=== PATIENT | female | born 1950 | race Caucasian/White ===

== ENCOUNTER 2025-01-23 08:34 | Emergency (ER) | payer MEDICARE, OTHER, SELFPAY ==
--- OUTSIDE RECORDS SUMMARY | 2023-09-11 03:05 | XMS_ITS | Continuity of Care Document ---
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 Location Location Details Encounter Type Encounter Number Reason For Visit Attending Provider ADM Date DC Date Status Disposition Source [facility] Outpatient Encounter [id number] 09/10 [facility]
--- OUTSIDE RECORDS SUMMARY | 2025-01-22 23:59 | XMS_ITS | Continuity of Care Document ---
Author Organization [facility] Address [address] [place] [id number] Care Team Providers Care Manager Animation Name Role Phone Margie GOETZ, Susan Goff Primary Care Physician [phone] Encounter [facility] Date(s): 12/23/24 - 01/22/25 [facility]/[address] [address]- Encounter Type: Triage Allergies, Adverse Reactions, Alerts Substance Criticality Severity Reaction Reaction Severity Status penicillin Active lidocaine topical 1 Active meloxicam Pruritic Rash Active lisinopril angioedema Active Tegretol chemical induce hepatitis Active Bactrim Active 1rash Immunizations Given and Recorded Vaccine Date Status Refusal Reason Influenza Virus Vaccine (oldterm) 1 03/09/24 Recor ded Influenza Virus Vaccine (oldterm) 02/13/20 Recorde d Influenza Virus Vaccine (oldterm) 02/10/19 Recorde d SARS-CoV-2 mRNA ([id number]) vax 2 03/09/24 Recorded SARS-CoV-2 mRNA (nyixxmf-kaiy-zygyg) vax 02/24/23 Recorded SARS-CoV-2 mRNA (ibjazgs-uzao-kcjht) vax 09/26/21 Recorded influenza virus vaccine, inactivated 03/09/24 Eugenio rded influenza virus vaccine, inactivated 02/24/23 Give n influenza virus vaccine, inactivated 02/21/22 Eugenio rded influenza virus vaccine, inactivated 04/08/21 Give n influenza virus vaccine, inactivated 03/25/18 Give n influenza virus vaccine, inactivated 02/17/17 Give n influenza virus vaccine, inactivated 03/25/16 Give n influenza virus vaccine, inactivated 07/13/15 Eugenio rded influenza virus vaccine, inactivated 3 05/12/14 Gi chintan influenza virus vaccine, inactivated 4 03/11/12 Gi chintan SARS-CoV-2(COVID-19)mRNA-LNP vac([id number]) 03/09/24 Recorded pneumococcal 20-valent conjugate vaccine 01/19/24 Given RSV vaccine preF3, recombinant 04/22/23 Recorded [id number] bivalent booster vax 02/21/22 Recorded SARS-CoV-2 (COVID-19) mRNA BNT-162b2 vac 03/01/21 Recorded SARS-CoV-2 (COVID-19) mRNA BNT-162b2 vac 07/20/20 Recorded SARS-CoV-2 (COVID-19) mRNA BNT-162b2 vac 06/29/20 Recorded zoster vaccine, inactivated 05/16/19 Given zoster vaccine, inactivated 02/07/19 Given tetanus/diphtheria/pertussis, acel(Tdap) 01/29/19 Recorded tetanus/diphtheria/pertussis, acel(Tdap) 5 09/19/11 Given pneumococcal 23-valent vaccine 05/08/17 Given pneumococcal 13-valent vaccine 6 08/28/15 Given Zoster Vaccine Live 7 04/24/12 Given Zoster Vaccine Live 03/11/12 Recorded hepatitis B adult vaccine 02/15/03 Given [facility] [place] 4Admin Note: VIS11/24/11 GIVEN 5Admin Note: BOOSYRIX [facility] STOCK VIS 04/11/08 GIVEN 6Result Comment: [08/28/2015] ORDERED BY DR. HANSON 7Result Comment: [07/05/2014] Received at [facility] Medications amLODIPine 5 mg oral tablet 1 tablet, By Mouth, Daily, # 90 tablet, 3 Refills, Maintenance, 01/19/24 1:14:00 PM EDT, [id number], 149, cm, 01/19/24 9:17:00 EDT, Height Start Date: 01/19/24 Status: Ordered Medication Dispense Status: Completed Quantity: 90.0 Unit: tablet Total Allowed Fills: 4 Fills Dispensed: 0 atenolol 100 mg oral tablet 1 tablet, By Mouth, Daily, # 90 tablet, 3 Refills, Maintenance, 04/19/24 8:47:00 AM EST, [facility]/pharmacy #[id number], 149, cm, 04/19/24 8:15:00 EST, Height Start Date: 04/19/24 Status: Ordered Medication Dispense Status: Completed Quantity: 90.0 Unit: tablet Total Allowed Fills: 4 Fills Dispensed: 0 bedside commode bedside commode, See Instructions, # 1 each, Refills 0, Tot. Refills 0, Maintenance, incontinence fall risk MARCEL 99, 01/02/25 6:26:00 PM EDT, Supply Start Date: 01/02/25 Status: Ordered Medication Dispense Status: Completed Quantity: 1.0 Unit: each Total Allowed Fills: 1 Fills Dispensed: 0 bladder control pads bladder control pads, See Instructions, # 120 each, Refills 5, Tot. Refills 5, Maintenance, Dx: urinary incontinence MARCEL 99, 01/02/25 6:26:00 PM EDT, Supply Start Date: 01/02/25 Status: Ordered Medication Dispense Status: Completed Quantity: 120.0 Unit: each Total Allowed Fills: 6 Fills Dispensed: 0 cefpodoxime 200 mg oral tablet 1 tablet = 200 mg, By Mouth, Every 12 hours, for 10 days, # 20 tablet, 0 Refills, Physician Stop 01/26/25 4:46:00 PM EDT, 01/16/25 4:46:00 PM EDT, [id number], 149, cm, 01/16/25 16:12:00 EDT, Height, 90.8, kg, 01/16/25 16:12:00 EDT, Dry Weight Start Date: 01/16/25 Stop Date: 01/26/25 Status: Ordered Medication Dispense Status: Completed Quantity: 20.0 Unit: tablet Total Allowed Fills: 1 Fills Dispensed: 0 clonazePAM 0.5 mg oral tablet 1 tablet = 0.5 mg, By Mouth, 2 times a day, PRN as needed for insomnia or back spasm, # 60 tablet, 5 Refills, Maintenance, 01/16/25 4:33:00 PM EDT, [id number], covering for PCP, 149, cm, 01/16/25 16:12:00 EDT, Height, 90.8, kg, 01/16/25 16:12:00 EDT, Dry Weight Start Date: 01/16/25 Stop Date: 07/15/25 Status: Ordered Medication Dispense Status: Completed Quantity: 60.0 Unit: tablet Total Allowed Fills: 6 Fills Dispensed: 0 diclofenac 1% topical gel 2.25 inches, Topically, 4 times a day, use dosing card to measure a dose, # 100 Gm, 1 Refills, Maintenance, 12/23/24 3:49:00 PM EDT, Gel, [facility]/pharmacy #[id number], Partial fill upon patient request if the prescription is for a schedule II opioid drug., 149, cm, 12/23/24 14:48:00 EDT, Height, 93.4, kg, 12/23/24 14:48:00 EDT, Dry Weight Start Date: 12/23/24 Stop Date: 02/21/25 Status: Ordered Medication Dispense Status: Completed Quantity: 100.0 Unit: g Total Allowed Fills: 2 Fills Dispensed: 0 Indications: Pain in unspecified shoulder; disposable bed pads disposable bed pads, See Instructions, # 120 each, Refills 5, Tot. Refills 5, Maintenance, Dx: incontinence MARCEL 99, 01/02/25 6:19:00 PM EDT, Supply Start Date: 01/02/25 Status: Ordered Medication Dispense Status: Completed Quantity: 120.0 Unit: each Total Allowed Fills: 6 Fills Dispensed: 0 Estrace Vaginal Cream 0.1 mg/g See Instructions, 1 Gm Vaginally 3x a week at bedtime (MWF), # 42.5 Gm, 3 Refills, Maintenance, 01/16/25 4:46:00 PM EDT, [facility]/pharmacy #[id number], Partial fill upon patient request if the prescription is for a schedule II opioid drug., 149, cm, 01/16/25 16:12:00 EDT, Height, 90.8, kg, 01/16/25 16:12:00 EDT, Dry Weight Start Date: 01/16/25 Status: Ordered Medication Dispense Status: Completed Quantity: 42.5 Unit: g Total Allowed Fills: 4 Fills Dispensed: 0 magnesium glycinate 100 mg oral capsule 2 capsule = 200 mg, By Mouth, Daily, 0 Refills, Maintenance, 09/21/24 5:22:00 PM EDT, Partial fill upon patient request if the prescription is for a schedule II opioid drug. Start Date: 09/21/24 Status: Ordered Medication Dispense Status: Completed Total Allowed Fills: 1 Fills Dispensed: 0 [place]-3 Polyunsaturated Fatty Acids = 1,000 mg, By Mouth, 2 times a day, 0 Refills, Maintenance, 07/02/18 3:42:02 PM EST Start Date: 07/02/18 Status: Ordered Medication Dispense Status: Completed Total Allowed Fills: 1 Fills Dispensed: 0 pull ups XL pull ups XL, See Instructions, # 240 each, Refills 5, Tot. Refills 5, Maintenance, Dx: incontinenceLON 99, 01/02/25 6:19:00 PM EDT, Supply Start Date: 01/02/25 Status: Ordered Medication Dispense Status: Completed Quantity: 240.0 Unit: each Total Allowed Fills: 6 Fills Dispensed: 0 traMADol 50 mg oral tablet 1 tablet = 50 mg, By Mouth, Every 12 hours, PRN for low back pain/hip/wrist pain, # 60 each, 1 Refills, Maintenance, 01/16/25 4:47:00 PM EDT, Tablet, [facility]/pharmacy #[id number], Partial fill upon patient request if the prescription is for a schedule II opioid drug., 149, cm, 01/16/25 16:12:00 EDT, Height, 90.8, kg, 01/16/25 16:12:00 EDT, Dry Weight Start Date: 01/16/25 Status: Ordered Medication Dispense Status: Completed Quantity: 60.0 Unit: each Total Allowed Fills: 2 Fills Dispensed: 0 Vitamin D3 50,000 intl units oral capsule See Instructions, TAKE 1 CAPSULE BY MOUTH EVERY WEEK WITH FOOD. AFTER COMPLETING THE WEEK COURSE, STAR VIT D3 1000 UNITS DAILY, # 12 capsule, 3 Refills, Maintenance, 01/17/25 4:40:00 PM EDT, [facility] [id number], 149, cm, 01/16/25 16:12:00 EDT, Height, 90.8, kg, 01/16/25 16:12:00 EDT, Dry Weight Start Date: 01/17/25 Status: Ordered Medication Dispense Status: Completed Quantity: 12.0 Unit: capsule Total Allowed Fills: 1 Fills Dispensed: 0 washable bed pads washable bed pads, See Instructions, # 5 each, Refills 0, Tot. Refills 0, Maintenance, Dx: incontinence MARCEL 99, 01/02/25 6:34:00 PM EDT, Supply Start Date: 01/02/25 Status: Ordered Medication Dispense Status: Completed Quantity: 5.0 Unit: each Total Allowed Fills: 1 Fills Dispensed: 0 wheeled walker with seat wheeled walker with seat, See Instructions, # 1 each, Refills 0, Tot. Refills 0, Maintenance, Dx: fall risk, 01/02/25 6:33:00 PM EDT, Supply Start Date: 01/02/25 Status: Ordered Medication Dispense Status: Completed Quantity: 1.0 Unit: each Total Allowed Fills: 1 Fills Dispensed: 0 Problem List Condition Confirmation Course Effective Dates Status H ealth Status Informant Angioedema 1 Confirmed Active Anxiety disorder Confirmed Active Cholelithiases Confirmed 01/11/25 Active Cervical spondylosis-diffuse, no cord impingement Confirmed 06/25/12 Active DDD (degenerative disc disease), lumbar 2 Confirmed 04/19/24 Active Abnormal resting ECG findings 3 Confirmed 10/29/16 Active Radius distal fracture--left Confirmed 01/28/23 Active Reflux esophagitis Confirmed Active S/P colonoscopic polypectomy (sessile <10 mm) Confirmed 06/17/24 Active Status post right knee replacement Confirmed 03/11/17 Active Hyperlipidemia Confirmed Active Hypertension Confirmed Active Osteitis pubis (see MRI findings) Confirmed 10/27/24 Active Insomnia Confirmed Active Macrocytosis - no anemia Confirmed 12/12/00 Active Obesity (BMI >40) Confirmed 11/22/08 Active Left Knee Replacement Confirmed 07/27/13 Active [facility] arthritis, thumb, degenerative-left Confirmed 08/30/21 Active Osteopenia-hip Confirmed 12/01/13 Active Severe obesity Confirmed Active Vitamin D deficiency Confirmed Active 1probably from [facility] 2Mild multifocal degenerative disc endplate spurring and disc space narrowing. Grade 1 degenerative anterolisthesis at L4-L5. 3Stess test and ECHO ([facility] 10/2016) both normal. Social History Social History Type Response Smoking Status Never (less than 100 in lifetime) entered on: 02/24/23 Sex Sex Representation Female (finding) Patient Care team information Care Team Personnel Name: Susan Hanson MD Position: [facility] Physician - Primary Care Member Role: PCP Address: [address] [place] [address] Telecom: Care Team Related Persons Name: ISAEL PELAEZ Insurance Providers Guarantor name: ZAKIA BURNS Tripping Plan Information #: 1 Payer: MEDICARE B Payer Identifier: NA Member Number: [id number] Group Number: NA Subscriber Identifier: NA Relationship to Subscriber: self Coverage Type: NA Coverage Verification Date: NA Telecom: NA Address: NA Health Plan Information #: 2 Payer: [facility] Payer Identifier: NA Member Number: [id number] Group Number: NA Subscriber Identifier: NA Relationship to Subscriber: self Coverage Type: [employer] [facility] () Coverage Verification Date: NA Telecom: NA Address:
--- NOTE | ~2025-01-23 | XR_ITS ---
CLINICAL HISTORY: pain after fall 3 view left shoulder Comparison: None provided Findings: Mildly displaced acute appearing Fracture of the proximal humerus. No significant loss of joint space or osteophytes. No erosions. No radiopaque foreign body. Spurring of the lateral acromion. Soft tissue swelling. IMPRESSION: Mildly displaced acute appearing Fracture of the proximal humerus. This document has been electronically signed by: Chema Meraz DO on 01/23/2025 09:56:58
--- NOTE | ~2025-01-23 | CT_ITS ---
CLINICAL HISTORY: fall with head strike CT head without contrast Comparison: CT/SR - CT CERVICAL SPINE WO IV CON - 01/23/25 08:55 EDT Findings: No intra-axial mass, midline shift, hydrocephalus, or acute hemorrhage. No significant atrophy-like change or white matter disease. The visualized paranasal sinuses and mastoid air cells are normal. Postoperative changes of both globes. Partially included scalp and calvarium. Questionable soft tissue swelling of the superior scalp. No skull fracture. IMPRESSION: 1. No acute intracranial findings. This document has been electronically signed by: Chema Meraz DO on 01/23/2025 10:04:54
--- NOTE | ~2025-01-23 | XR_ITS ---
CLINICAL HISTORY: fall, deformity 4 view left wrist Comparison: CR - XR HAND LT MIN 3V - 01/23/25 09:08 EDT Findings: Bones intact. No dislocations. Multifocal degenerative changes. No radiopaque foreign body. Chronic appearing deformity of the distal radius and ulna. Diffusely decreased bone mineral density. IMPRESSION: Chronic appearing deformity of the distal radius and ulna. This document has been electronically signed by: Chema Meraz DO on 01/23/2025 09:55:19
--- NOTE | ~2025-01-23 | CT_ITS ---
CLINICAL HISTORY: fall with head strike CT cervical spine without contrast Comparison: CT/SR - CT HEAD/BRAIN WO IV CON - 01/23/25 08:55 EDT Findings: Normal vertebral body alignment. Multilevel degenerative changes. No acute fractures or dislocations. Visualized intracranial contents are unremarkable. No cervical fluid collections or masses. No consolidation or effusion at the lung apices. IMPRESSION: No acute findings. This document has been electronically signed by: Chema Meraz DO on 01/23/2025 10:05:55
--- NOTE | ~2025-01-23 | XR_ITS ---
CLINICAL HISTORY: +fx on shoulder xray --- Additional Notes or Special Instructions: please dont rotate humerus to get views 3 view left humerus Comparison: CR - XR SHOULDER LT MIN 2V - 01/23/25 09:12 EDT Findings: Impacted acute displaced fracture of the proximal humerus. There is 1.8 cm of impaction of the fracture. There is soft tissue swelling. IMPRESSION: Impacted acute displaced fracture of the proximal humerus. This document has been electronically signed by: Chema Meraz DO on 01/23/2025 13:33:26
--- NOTE | ~2025-01-23 | XR_ITS ---
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 Multifocal degenerative changes. no definite acute fracture. No radiopaque foreign body. Chronic appearing deformity at the distal radius and distal ulna. Diffusely decreased bone mineral density. IMPRESSION: 1. 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 2. Chronic appearing deformity at the distal radius and distal ulna. This document has been electronically signed by: Chema Meraz DO on 01/23/2025 09:53:13
--- NOTE | 2025-01-23 08:38 | ED_ITS ---
HPI - General Adult General Chief complaint: Fall Stated complaint: MECHANICAL FALL LETHARGIC Time Seen by Provider: 01/24/25 08:07 Source: patient, EMS, RN notes reviewed and old records reviewed Mode of arrival: EMS Limitations: no limitations History of Present Illness ED Provider: Ashley HPI narrative: Patient is a 74-year-old female with history of HTN, HLD, cirrhosis-currently being worked up by GI, obesity, anxiety, recent multiple falls presenting to the emergency department via EMS with complaint of left wrist pain after a slip and fall from bed prior to arrival. EMS reports patient somewhat drowsy/lethargic. Patient's reports that patient has had a steady decline since a significant left wrist and hand fracture a few years ago, has had frequent UTIs. also reports ongoing right shoulder pain for which patient is prescribed tramadol. Currently on cefpodoxime for a UTI now. reports difficulty caring for patient at home and patient agrees with this. did not witness fall but heard patient calling for help. Patient took clonazepam and tramadol at bedtime. Patient denies loss of consciousness, she is not anticoagulated. She denies headache, neck or back pain. Denies chest pain, dyspnea, abdominal pain. She refused a C-collar for EMS. She denies any hip or lower extremity pain. MD complaint: left arm pain Onset (ago): hour(s) Related Data Home Medications ?Medication ?Instructions ?Recorded ?Confirmed amlodipine 5 mg tablet 5 mg PO DAILY 01/24/2501/24 atenolol 100 mg tablet 100 mg PO DAILY 01/24/2507/19 cefpodoxime 200 mg tablet 200 mg PO Q12H 01/24/2507/19 clonazepam 0.5 mg tablet 0.5 mg PO BID PRN muscle spa sm 01/24/25 01/24/25 cyanocobalamin (vitamin B-12) 1,000 mcg PO Q48H 01/24/25 1,000 mcg tablet diclofenac sodium 50 mg 50 mg PO DAILY PRN low back pain 01/24/25 01/24/25 tablet,delayed release estradiol 0.01% (0.1 mg/gram) 1 g vaginal 3XW 01/24/25 01/24/25 vaginal cream magnesium 200 mg tablet 200 mg PO DAILY 01/24/2507/19 omega 3-mom-wbx-fish oil 300 1 cap PO DAILY 01/24/25 0 01/24/25 mg-1,000 mg capsule (Fish Oil) tramadol 50 mg tablet 50 mg PO Q12H PRN Pain 01/2401/24/25 Previous Rx's ?Medication ?Instructions ?Recorded morphine 15 mg immediate release 15 mg PO Q8H severe p ain #7 tabs 01/24/25 tablet Allergies Allergy/AdvReac Type Severity Reaction Status Date / Time carbamazepine (Tegretol) Allergy Unknown Unknown Verified 01/23/25 08:56 lisinopril Allergy Unknown Unknown Verified 01/23/25 08:56 penicillin V Allergy Unknown Unknown Verified 01/23/25 08:56 Sulfa (Sulfonamide Allergy Unknown Unknown Verified 01/23/25 08:56 Antibiotics) [place] Sponge Allergy Unknown Unknown Uncoded 01/23/25 08:56 Review of Systems 2 Review of Systems: As per HPI Yes all other systems are reviewed and are negative Constitutional: Constitutional: Reports as per HPI PMFSH Social History Social History Advance Directives: Yes Advance Directives Information Provided: No Advance Directives on File: No Physical Exam ED Vital Signs: Vital Signs - 24 hr 01/23/25 21:03 01/23/25 23:00 01/24/25 02:01 Temperature 98.1 F 97.1 F Pulse Rate 79 80 Respiratory Rate 18 18 20 Blood Pressure 144/53 H 139/60 Pulse Oximetry 94 94 Oxygen Delivery Method Room Air Room Air 01/24/25 05:05 01/24/25 08:37 01/24/25 14:00 Temperature 98.2 F 98.9 F 99.9 F Pulse Rate 77 81 84 Respiratory Rate 18 16 16 Blood Pressure 140/30 H 132/57 L 123/63 Pulse Oximetry 98 97 94 Oxygen Delivery Method Room Air Room Air 01/24/25 16:26 Temperature 98.9 F Pulse Rate 84 Respiratory Rate 16 Blood Pressure 123/63 Pulse Oximetry 94 Oxygen Delivery Method Room Air BMI result Body Mass Index 38.3 Vital signs have been reviewed and appear to be correct. Blood pressure normal. Heart rate normal. Respiratory rate normal. Temperature normal. Oxygen saturation normal. Const General: cooperative, no acute distress and other (drowsy, responds quickly to voice) Orientation/consciousness: oriented to person, oriented to place, oriented to time and patient oriented x3 Limitations: no limitations [facility] Head: Yes normocephalic and Yes atraumatic Ears: external ears normal General nose exam: Normal external nose present Face and sinus: Yes face symmetric Mouth: oropharynx normal and moist mucous membranes Throat: Yes uvula midline Eyes Pupils: Equal, round and reactive pupils present Neck Neck: Yes normal visual inspection and Yes supple Resp Effort & Inspection: normal respiratory effort and able to speak in complete sentences Auscultation: clear to auscultation bilaterally Cardio Rate: regular rate Rhythm: regular rhythm Heart sounds: S1 normal heart sound present and S2 normal heart sound present GI Palpation (GI): Soft to palpation and nontender Auscultation: normoactive bowel sounds General: Yes no CVA tenderness Back/Spine/Pelvis Back: no CVA tenderness Cervical Spine: normal cervical lordosis, cervical ROM normal, No pain with cervical ROM, No Cervical spine tenderness and No step off deformity Thoracic/Lumbar Spine: thoracic and lumbar spine normal to inspection, thoraco- lumbar ROM normal, No pain with thoraco-lumbar ROM, No thoracic spinal tenderness and No lumbar spinal tenderness Pelvis: no pain with anterior-posterior compression and no pain with lateral compression Skin General skin exam: elasticity normal and turgor normal Neuro General: oriented to person, oriented to place, oriented to time, patient oriented x3, moves all extremities, no focal motor deficits and CN's II-XI intact bilaterally Cranial nerves: Yes Equal, round and reactive pupils present Cognition (Neuro): normal cognition Extrem General: Yes full ROM, Yes no pedal edema and Yes no calf tenderness Left upper extremity: shoulder/upper arm Details: inspection abnormal and tenderness Location: of the A-C joint; no ecchymosis, wrist forearm distal Details: tenderness Location: of the distal radius, deformity, normal vascular exam and radial pulse present and hand Details: normal to inspection, normal capillary refill, neuromotor exam normal, neurosensory exam normal and normal ROM of fingers Psych Mental Status: mental status grossly normal Affect: normal affect Thought process: Normal thought process present Medications Administered Discontinued Medications Generic Name Dose Route Start Last Admin Trade Name Freq PRN Reason Stop Dose Admin Amlodipine Besylate 5 mg 01/23/25 11:41 01/23/25 11:58 Amlodipine Besylate 5 Mg Tablet PO 01/23/25 11:42 5 mg ONCE ONE Administration Protocol Amlodipine Besylate 5 mg 01/24/25 09:00 01/24/25 08:49 Amlodipine Besylate 5 Mg Tablet PO 5 mg DAILY KEREN Administration Protocol Atenolol 100 mg 01/23/25 11:41 01/23/25 12:52 Atenolol 100 Mg Tablet PO 01/23/25 11:42 100 mg ONCE ONE Administration Protocol Atenolol 100 mg 01/24/25 09:00 01/24/25 08:49 Atenolol 100 Mg Tablet PO 100 mg DAILY KEREN Administration Protocol Clonazepam 1 mg 01/23/25 20:23 01/23/25 20:43 Clonazepam 1 Mg Tablet PO 01/23/25 20:24 1 mg ONCE ONE Administration Cyanocobalamin 1,000 mcg 01/24/25 09:00 01/24/25 08:49 Cyanocobalamin (Vitamin B-12) 1,000 Mcg Tablet PO 1,000 mcg Q48H KEREN Administration Hydromorphone HCl 2 mg 01/24/25 00:54 01/24/25 01:01 Hydromorphone Hcl 2 Mg Tablet PO 01/24/25 00:55 2 mg ONCE ONE Administration Ketorolac Tromethamine 15 mg 01/23/25 10:28 01/23/25 10:32 Ketorolac Tromethamine 15 Mg/Ml Vial IVPUSH 01/23/25 10:29 15 mg ONCE ONE Administration Magnesium Oxide 200 mg 01/24/25 09:00 01/24/25 08:49 Magnesium Oxide 400 Mg Tablet PO 200 mg DAILY KEREN Administration Pt Own(Cefpodoxime 200 mg 01/23/25 16:30 01/24/25 08:48 200 Mg) PO 200 mg BID KEREN Administration Tramadol HCl 100 mg 01/23/25 11:40 01/23/25 11:58 Tramadol Hcl 50 Mg Tablet PO 01/23/25 11:41 100 mg ONCE ONE Administration Tramadol HCl 100 mg 01/23/25 20:23 01/23/25 20:44 Tramadol Hcl 50 Mg Tablet PO 01/23/25 20:24 100 mg ONCE ONE Administration Medical Decision Making Medical Decision Making MDM Narrative: Patient is a 74-year-old female with history of HTN, HLD, cirrhosis-currently being worked up by GI, obesity, anxiety, recent multiple falls presenting to the emergency department via EMS with complaint of left wrist pain after a slip and fall from bed prior to arrival. On exam patient is awake, A+Ox3, VS WNL, afebrile, normal neurological exam without focal deficits, physical exam findings as above. Given reported symptoms and physical exam findings, initial differential includes but is not limited to contusion versus strain/sprain versus fracture of left hand, wrist and shoulder. Less likely ICH, skull or cervical vertebral fracture but given age, will obtain CT head and c-spine. Labs notable for no leukocytosis, elevated transaminases and alk phos, T bili, CK normal. Ethanol level of 10. Urine drug screen positive for marijuana. Already being worked up for cirrhosis and denies current abdominal pain. CT head and c-spine notable for no evidence of ICH, skull or cervical vertebral fracture subluxation. Left shoulder x-ray notable for proximal humerus fracture. No acute fractures of left wrist or hand but chronic deformity from prior fractures noted. My interpretation is in agreement with the radiologist's interpretation. Case discussed with Dr. Ivan from ortho who recommends dedicated humerus x-rays and a sling for outpatient follow up. Given chronic right shoulder pain, frequent falls and new left humerus fracture, patient and do not feel comfortable with discharge home. Will order PT and case management evaluations. Patient placed on physician observation. Sling ordered for left arm. Code status discussed and patient is a full code, ordered in computer. Patient requesting pain medication, states Toradol was not helpful for her pain, reports adverse effect of nausea with oxycodone and specifically requesting Dilaudid. Will try Tramadol. Upon review of [facility], patient is prescribed 50mg BID, however, states patient has been taking 100mg at a time. Cefpodoxime unavailable per pharmacy, will treat with ceftriazone while in the ED, if needed, will send rx to [facility] for remaining doses of cefpodoxime. Time: 08:29 Date: 01/24/25 Provider: MNIA Haley Patient in physician observation for case management needs. No acute events reported overnight.? No current issues or complaints. VS stable. Awaiting case management disposition. 12:35 PM 01/24/2025 (Elda Cee PA-C): There is concerns that patient was acting not herself, I went over and spoke to patient as well as family member at bedside, patient is alert and oriented x4, no neurologic deficits, no current complaints. We will continue with current plan of awaiting case management disposition. Time: 17:12 Date: 01/24/25 Provider: MINA Haley Physician observation ended at 1600. [facility] to [facility]. Differential Diagnosis Differential Diagnoses: The differential diagnosis associated with the presentation includes as per [facility] Admission/Observation Consideration of admission/observation: Escalation of care including admission/observation considered Patient would have been admitted to the hospital had their clinical presentation warranted hospital admission. Consult Healthcare Provider Management of the patient was discussed with: Associate Professor Of Communication (Dr. Ivan) Lab Data [facility] Lab Attestation statement: I reviewed the patient's lab results. As per [facility] 01/23/25 09:23 01/23/25 09:23 Labs: Lab Results 01/23/25 01/23/25 Range/Units 08:50 09:23 WBC 6.3 (4.8-10.8) X10*3/uL RBC 3.81 L (4.20-5.50) X10*6/uL Hgb 14.4 (12.0-16.0) g/dl Hct 41.2 (37.0-47.0) % MCV 108.1 H (80.0-98.0) fL MCH 37.8 H (27.0-33.0) pg MCHC 35.0 (31.0-35.0) g/dl RDW 13.7 (11.0-16.0) % Plt Count 129 L (160-400) X10*3/uL MPV 9.6 (9.4-12.3) fL Immature Gran % (Auto) 0.3 (0.0-0.4) % Neut % (Auto) 42.0 L (45-73) % Lymph % (Auto) 41.7 H (20-40) % Burnett % (Auto) 13.7 H (2-11) % Eos % (Auto) 1.8 (0-4) % Baso % (Auto) 0.5 (0-2) % Lymph # (Auto) 2.6 (1.2-4.9) X10*3/uL Burnett # (Auto) 0.9 (0.1-1.2) X10*3/uL Eos # (Auto) 0.1 (0.0-0.4) X10*3/uL Baso # (Auto) 0.0 (0.0-0.2) X10*3/uL Abs Immat Gran (auto) 0.02 (0.00-0.03) X10*3/uL Absolute Neuts (auto) 2.6 (2.0-8.3) x10*3/uL Absolute Nucleated RBC 0.000 (0.0-0.012) X10*3/uL Nucleated RBC % (auto) 0.0 (0.0-0.2) /100WBC Sodium 141 (135-145) mmol/L Potassium 3.4 (3.3-5.1) mmol/L Chloride 105 (96-108) mmol/L Carbon Dioxide 23 (22-29) mmol/L Anion Gap 16 (12-20) BUN 7 L (9-16) mg/dL Creatinine 0.68 (0.5-1.4) mg/dL Estim Creat Clear Calc 87.0 Estimated GFR > 60 Random Glucose 133 H (60-115) mg/dL Calcium 9.0 (8.4-10.2) mg/dL Total Bilirubin 1.4 H (0.0-1.0) mg/dL AST 109 H (5-31) U/L ALT 47 H (0-31) U/L Alkaline Phosphatase 200 H (39-117) U/L Total Creatine Kinase 53 (26-140) U/L Total Protein 6.3 L (6.5-8.0) g/dL Albumin 3.3 L (3.5-5.0) g/dL Urine Color [place] Urine Appearance Clear Urine pH 6.0 (5.0-9.0) Ur Specific [place] 1.015 (1.005-1.025) Urine Protein Negative (Neg-Trace) mg/dL Urine Glucose (UA) Negative (Negative) mg/dL Urine Ketones Negative (Negative) mg/dL Urine Blood Negative (Negative) Urine Nitrite See Note (Negative) Ur Leukocyte Esterase Small (1+) H (Negative) Urine RBC 0-2 (0-2) /HPF Urine WBC 21-50 H (0-5) /HPF Ur Squamous Epith Cells 6-10 (0-2) /HPF Urine Bacteria 2+ (None Seen) Hyaline Casts 0-2 (0-2) /LPF Urine Opiates Screen Not Detected (Not Detect) Ur Buprenorphine Scrn Not Detected (Not Detect) ng/mL Ur Oxycodone Screen Not Detected (Not Detect) ng/mL Urine Methadone Screen Not Detected (Not Detect) ng/mL Urine Fentanyl Screen Not Detected (Not Detect) Ur Barbiturates Screen Not Detected (Not Detect) Ur Phencyclidine Scrn Not Detected (Not Detect) Ur Amphetamines Screen Not Detected (Not Detect) U Benzodiazepines Scrn Not Detected (Not Detect) Urine Cocaine Screen Not Detected (Not Detect) U Marijuana (THC) Screen POSITIVE H (Not Detect) Ethyl Alcohol 10 mg/dL Independent Interpretation I performed an independent interpretation of an: Plain X-Ray and CT Scan Interpretation: CT head and c-spine notable for no evidence of ICH, skull or cervical vertebral fracture subluxation. Left shoulder x-ray notable for proximal humerus fracture. No acute fractures of left wrist or hand but chronic deformity from prior fractures noted. Radiology Impression Discussion of test interpretation with radiology: I have reviewed the radiologist's reading. Radiologist Impression: IMPRESSION: Mildly displaced acute appearing Fracture of the proximal humerus. IMPRESSION: Chronic appearing deformity of the distal radius and ulna. IMPRESSION: 1. 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 2. Chronic appearing deformity at the distal radius and distal ulna. IMPRESSION: 1. No acute intracranial findings. IMPRESSION: No acute findings. Independent Historian Clinical information obtained from an independent historian. History obtained from or confirmed by: Spouse () External Record Review External record reviewed: Inpatient record, Office record and Outpatient record Prescription Management I considered prescription management with: Pain Medication Critical Care Time Critical Care Time Critical Care Time: Yes Total Critical Care Time: 40 Attestation: I have personally provided critical care time exclusive of time spent on separately billable procedures. Time includes review of lab data, radiology results, discussion with consultants, and monitoring for potential decompensation. Intervention performed as documented. Discharge Plan Discharge Clinical Impression: Fracture of proximal end of humerus Qualifiers: Encounter type: initial encounter Fracture type: closed Fracture morphology: u nspecified fracture morphology Laterality: left Qualified Code(s): S42.202A - Unspecified fracture of upper end of left humerus, initial encounter for closed fracture Patient Disposition: er [facility] Transfer Details: [facility] Instructions: Arm Fracture in Adults (ED) Additional Instructions: You were seen in the emergency department in you were found to have a fracture of your proximal humerus. Stay in the shoulder immobilizer until you follow-up with the customer energy specialist. Continue taking Tylenol as needed for pain and symptoms. Please follow-up with the customer energy specialist. Call to make an appointment. Morphine is a strong narcotic pain medication, please only use sparingly. Please be advised that this can cause drowsiness, do not drink alcohol or drive while taking this medication. This also put you at risk for fall. Please be advised that this medication can not be refilled through the emergency room therefore if you require additional medication, please follow-up with your primary care physician. If any new or worsening symptoms occur including but not limited to severe chest pain, shortness of breath, please seek emergent care. Prescriptions: New morphine 15 mg tablet 15 mg PO Q8H Qty: 7 0RF Rx Instructions: Partial Fill upon patient request. No Action atenolol 100 mg tablet 100 mg PO DAILY clonazepam 0.5 mg tablet 0.5 mg PO BID PRN (Reason: muscle spasm) cyanocobalamin (vitamin B-12) 1,000 mcg tablet 1,000 mcg PO Q48H amlodipine 5 mg tablet 5 mg PO DAILY tramadol 50 mg tablet 50 mg PO Q12H PRN (Reason: Pain) diclofenac sodium 50 mg tablet,delayed release (DR/EC) 50 mg PO DAILY PRN (Reason: low back pain) estradiol 0.01 % (0.1 mg/gram) cream 1 g vaginal 3XW cefpodoxime 200 mg tablet 200 mg PO Q12H magnesium 200 mg Tablet 200 mg PO DAILY omega 0-lyq-uyr-fish oil [Fish Oil] 300-1,000 mg Capsule 1 cap PO DAILY Referrals: [facility] [Other] Interventions: ED Discharge Assessment Last Done: 01/24/25 16:26 Discharge Date/Time: 01/24/25 16:28 Print Language: Indonesian
[2025-01-23 08:39] VITALS: BP 133/58; PULSE 72; O2SAT 96
[2025-01-23 08:54] VITALS: BP 132/40; PULSE 83; RESP 16; O2SAT 98; BMI 38.3
[2025-01-23 09:08] LABS: Appearance Urine Clear
[2025-01-23 09:09] LABS: Glucose Urine UA Negative (Negative); PH 6.0 (5.0-9.0); Specific Gravity - Urine 1.015 (1.005-1.025)
[2025-01-23 09:11] LABS: UMIC TRIGGER UACC YES
[2025-01-23 09:12] LABS: UACC Culture Trigger YES
--- OUTSIDE RECORDS SUMMARY | 2025-01-23 09:19 | XMS_ITS | Encounter Summary ---
Author Organization [facility] Address [address] [facility] [address] [place] [phone] Phone Care Team Providers Care Law Firm Partner Name Role Phone Susan Hanson MD Primary Care Provider [phone] Encounter Details Date Type Department Care Team (Late st Contact Info) Description 11/12/2024 Procedure Pass [facility], Ct Scan - [address] [id number] Social History Tobacco Use Types Packs/Day Years Used Date Smoking Tobacco: Never Smokeless Tobacco: Never Alcohol Use Standard Drinks/Week Comments Yes 1 (1 standard drink = 0.6 oz pur e alcohol) evevry three months Education Answer Date Recorded Are you interested in more education? Not on marko e 09/19/2022 Are you concerned about learning? Not on file 09/19/2022 No 09/19/2022 No 09/19/2022 Digital Access Answer Date Recorded No 10/18/2022 No 10/18/2022 Reliable internet access at home? Not on file 10/18/2022 Device with a working camera? Not on file Intimate Partner Violence Answer Date R ecorded Are you denied basic needs s uch as food, clothing, or medical care? No 11/12/2024 In the past 12 months have y ou been in a relationship with a person who hurts, threatens, or tries to control you? No 11/12/2024 Are you denied basic needs s uch as food, clothing, or medical care? No 11/12/2024 In the past 12 months have y ou been in a relationship with a person who hurts, threatens, or tries to control you? No 11/12/2024 Comments Unknown Sex and Gender Information Value Date Recorded Sex Assigned at Female 12/31/2024 2:07 PM EDT Legal Sex Female 11:24 AM EDT Gender Identity Female 12/31/2024 2:07 PM EDT Sexual Orientation Not on file documented as of this encounter Functional Status * Calculated C-SSRS Risk Score (Lifetime/Recent) Answer Date of Assessment Author No Risk Indicated 11/12/2024 12:32 PM EDT Annamaria Mcdaniels RN * [place] Suicide Severity Rating Scale (Screener/Recent Self-Report) Question Answer Date of Assessment Author 1. Wish to be (Past 1 Month) No 11/12/2024 12:32 PM EDT Annamaria Mcdaniels RN 2. Non-Specific Active Suici jaison Thoughts (Past 1 Month) No 11/12/2024 12:32 PM EDT Yumiko Mcdaniels RN 6. Suicidal Behavior (Lifetime) No 12:32 PM EDT Annamaria Mcdaniels RN documented as of this encounter Plan of Treatment Upcoming Encounters Date Type Department Care Team (Late st Contact Info) Description 02/08/2025 1:30 PM EDT Office Visit [facility] Orthopedics & Sports Medicine [address] [place] [phone] Jessica Lewis MD [address] [place] [address] Orthopedics & Sports Medicine, [facility] [place] [address] [email or web address] documented as of this encounter Visit Diagnoses Not on filedocumented in this encounter Care Teams Law Firm Partner Relationship Specialty Start Date End Date Susan Hanson MD [address] [place] [phone] PCP - General Internal Medicine 02/06/23 documented as of this encounter Additional Source Comments The information contained in this document represents components of the legal health record. It is not the complete legal health record.[facility]
--- OUTSIDE RECORDS SUMMARY | 2025-01-23 09:19 | XMS_ITS | Encounter Summary ---
Author Organization [facility] Address [address] [facility] [address] [place] [phone] Phone Care Team Providers Care Test Boring Crew Chief Name Role Phone Susan Hanson MD Primary Care Provider [phone]- [phone] Encounter Details Date Type Department Care Team (Late st Contact Info) Description 10/14/2023 Procedure Pass [place] Admitting Dept - Virtual Department [address] [place] [address] Social History Tobacco Use Types Packs/Day Years [...] as food, clothing, or medical care? No 10/14/2023 In the past 12 months have y ou been in a relationship with a person who hurts, threatens, or tries to control you? No 10/14/2023 Are you denied basic needs s uch as food, clothing, or medical care? No 10/14/2023 In the past 12 months have y ou been in a relationship with a person who hurts, threatens, or tries to control you? No 10/14/2023 Comments Unknown Sex and Gender Information Value Date Recorded Sex Assigned at Female 12/31/2024 2:07 PM EDT Legal Sex Female 11:24 AM EDT Gender Identity Female 12/31/2024 2:07 PM EDT Sexual Orientation Not on file documented as of this encounter Plan of Treatment Upcoming Encounters Date Type Department Care Team (Late st Contact Info) Description 02/08/2025 1:30 PM EDT Office Visit [facility] Orthopedics & Sports Medicine [address] [place] [phone] Jessica Lewis MD [address] [place] [address] Orthopedics & Sports Medicine, [facility] [place] [address] [email or web address] documented as of this encounter Visit Diagnoses Not on filedocumented in this encounter Care Teams Test Boring Crew Chief Relationship Specialty Start Date End Date Susan Hanson MD [address] [place] [id number] PCP - General Internal Medicine 02/06/23 documented as of this encounter Additional Source Comments The information contained in this document represents components of the legal health record. It is not the complete legal health record.[facility]
--- OUTSIDE RECORDS SUMMARY | 2025-01-23 09:19 | XMS_ITS | Encounter Summary ---
Author Organization [facility] Address [address] [facility] [address] [place] [address] Phone Care Team Providers Care Chrome Polisher Name Role Phone Susan Hanson MD Primary Care Provider Encounter Details Date Type Department Care Team (Latest Contact Info) Description 11/09/2024 Ancillary Orders [address] [address] Jessica Lewis MD [address] [place] [address] Orthopedics & Sports Medicine, [place] [address] [email or web address] Osteoarthritis of left hip, unspecified osteoarthritis type (Primary Dx) Social History Tobacco Use Types Packs/Day Years [...] 12:32 PM EDT Annamaria Mcdaniels RN * Rapides Suicide Severity Rating Scale (Screener/Recent Self-Report) Question [...] Description 02/08/2025 1:30 PM EDT Office Visit [facility] Orthopedics & Sports Medicine [address] [place] [address] Jessica Lewis MD [address] [place] [address] Orthopedics & Sports Medicine, [place] [address] [email or web address] documented as of this encounter Visit Diagnoses Diagnosis Osteoarthritis of left hip, unspecified osteoarthritis type- Primary documented in this encounter Care Teams Chrome Polisher Relationship Specialty Start Date End Date Susan Hanson MD [address] [place] [address] PCP - General Internal Medicine 02/06/23 documented as of this encounter Additional Source Comments The information contained in this document represents components of the legal health record. It is not the complete legal health record.[facility]
--- OUTSIDE RECORDS SUMMARY | 2025-01-23 09:19 | XMS_ITS | Patient Health Record ---
Author Organization [facility] Address [address] [place] [address] Care Team Providers Care Roaster Supervisor Name Role Phone Susan Hanson MD Primary Care Provider Ashlyn Gómez Unavailable [phone] Allergies Allergen (clinical drug ingredient) Drug/Non Drug Allergy documented on EMR Reaction Allergy Type Onset Date Status carbamazepine TEGretol chemically induc ed hepatitis Drug Allergy Active codeine Codeine hallucinations Drug Allergy Ac tive lisinopril Lisinopril rash Drug Allergy Activ e Penicillin rash Drug Allergy Active Substance with sulfonamide structure and antibacterial mechanism of action (substance) Sulfa Antibiotics rash Drug Allergy Active Reason For Referral No Information Medications Medication SIG (Take, Route, Frequency, Duration) Notes Start Date End Date Status hydroCHLOROthiazide 25 MG 1 tablet in th e morning Orally Once a day; Duration: 30 day(s) Active Fish Oil 1000 MG 1 capsule Orally Onc e a day; Duration: 30 day(s) Active Acetaminophen Active Pravastatin Sodium 20 MG 1 tablet Orally Once a day; Duration: 30 day(s) Active clonazePAM 0.5 MG 2 tablets on the ton sarthak and allow to dissolve 30 minutes before bedtime Orally Once a day Active Magnesium Glycinate Active Acetaminophen 8 Hour 650 MG 2 tablets as needed Orally every 8 hrs Active Atenolol 100 MG 1 tablet Orally Once a day; Duration: 30 day(s) Active hydroCHLOROthiazide 25 MG 1 tablet in th e morning Orally Once a day; Duration: 30 day(s) Active clonazePAM 0.5 MG 1 tablet at bedtime Orally Once a day Active amLODIPine Besylate 5 MG 1 tablet Orally Once a day; Duration: 30 day(s) Active amLODIPine Besylate 5 MG 1 tablet Orally Once a day; Duration: 30 day(s) Active Atenolol 100 MG 1 tablet Orally Once a day; Duration: 30 day(s) Active Fish Oil Active Magnesium Gluconate Active Arthritis Pain Medicine Active Pravastatin Sodium 20 MG 1 tablet Orally Once a day; Duration: 30 day(s) Active Social History Tobacco Use: Social History Observation Description Date Details (start date - stop date) Never Smoker NA - NA Tobacco Use/Smoking Question Answer Notes Are you a: nonsmoker Additional Findings: Tobacco Non-User Current no n-smoker Alcohol Screen Question Answer Notes Did you have a drink contain ing alcohol in the past year? Yes How often did you have a dri nk containing alcohol in the past year? Monthly or less (1 point) Points 1 Interpretation Negative Problems Problem Type SNOMED Code ICD Code Onset Dates Problem Status W/U Status Risk Notes Problem Contracture of joint of left foot (disorder) (294613120668873) Contracture , left foot (M24.575) Active confirmed Problem Acquired hammer toe of left foot (9902882646006328 ) Hammer toe of left foot (M20.42) Active confirmed Plan Of Treatment Pending Test Test Name Order Date X ray : Foot, left 3V 01/10/2022 [id number]-Ixevwceua, Toes 01/10/2022 Insurance Providers Payer Name Payer Address Payer Phone Subscriber Number Group Number Insured Name Patient Relationship to Insured Coverage Start Date Coverage End Date Medicare National Govt Svcs Inc [address] [facility] [address] [id number] Neema Arevalo Self - patient is the insured [facility] Claims [facility] Office of Community Care [address] [address] [place] [address] [id number] Neema Arevalo Self - patient is the insured Medical (General) History Medical History History ICD Code Anxiety Arthritis Hepatitis B High blood pressure Measles Mumps Chicken pox Joint implants/screws High Cholesterol Surgical History Surgery Date(Month/Year) appendectomy 02/1963 ovarian cyst resection tubal ligation 01/1979 impacted teeth extraction 1974 left knee replacement, total 07/2013 right knee replacement, total 02/2017
--- OUTSIDE RECORDS SUMMARY | 2025-01-23 09:20 | XMS_ITS | Encounter Summary ---
Author Organization [facility] Address [address] [place] [address] [place] [address] Phone Care Team Providers Care Renal Technician Name Role Phone Susan Hanson MD Primary Care Provider [phone] Encounter Details Date Type Department Care Team (Late st Contact Info) Description 02/11/2023 Ancillary Orders [address] [address] Ko Silva PA-C [address] [place] [address] Orthopedics & Sports Medicine, [place] [address] [email or web address] Wrist pain, acute, left Social History Tobacco Use Types Packs/Day Years Used Date Smoking Tobacco: Never Assessed Education Answer Date Recorded Are you interested in more education? Not on marko e 09/19/2022 Are you concerned about learning? Not on file 09/19/2022 No 09/19/2022 No 09/19/2022 Digital Access Answer Date Recorded No 10/18/2022 No 10/18/2022 Reliable internet access at home? Not on file 10/18/2022 Device with a working camera? Not on file Comments Unknown Sex and Gender Information Value Date Recorded Sex Assigned at Female 12/31/2024 2:07 PM EDT Legal Sex Female 11:24 AM EDT Gender Identity Female 12/31/2024 2:07 PM EDT Sexual Orientation Not on file documented as of this encounter Plan of Treatment Upcoming Encounters Date Type Department Care Team (Late st Contact Info) Description 02/08/2025 1:30 PM EDT Office Visit [facility] Orthopedics & Sports Medicine [address] [place] [address] Jessica Lewis MD [address] [place] [address] Orthopedics & Sports Medicine, [facility] [place] [address] [email or web address] documented as of this encounter Results * XR WRIST 2 VIEWS (LEFT) (02/11/2023 1:25 PM EDT) Narrative SYSTEMGENERATED, DOCUMENTATION - 02/11/2023 1:25 PM EDT This image report has been auto-finalized and has not been read by a Radiologist. Interpretation has been included in the provider encounter note for this date of service. Ko Silva PA-C IMG XR UPPER EXTREMITY Final Result documented in this encounter Visit Diagnoses Diagnosis Wrist pain, acute, left Wrist pain, acute, left documented in this encounter Care Teams Renal Technician Relationship Specialty Start Date End Date Susan Hanson MD [address] [place] [address] PCP - General Internal Medicine 02/06/23 documented as of this encounter Additional Source Comments The information contained in this document represents components of the legal health record. It is not the complete legal health record.[facility]
--- OUTSIDE RECORDS SUMMARY | 2025-01-23 09:20 | XMS_ITS | Clinical Summary ---
Author Organization [facility] [address] [facility] Address [address] [place] [address] Phone Care Team Providers Care Bi Report Developer Name Role Phone Susan Hanson MD Primary Care Provider [phone] Allergies Active Allergy Reactions Criticality Noted Date Comments Sulfamethoxazole-Trimeth oprim Unknown 06/13/2024 Codeine Hallucinations High 03/03/2023 Lisinopril Rash,Cough 06/13/2024 cellulitis Meloxicam 03/03/2023 Other Reaction(s): Pruritic Rash Other reaction(s): Pruritic Rash Other 06/13/2024 Horse serum Oxycodone Nausea And Vomiting High 09/28/2023 Penicillins Hives 06/13/2024 Sulfa (Sulfonamide Antibiotics) Rash Low 09/15/2023 Carbamazepine Unknown 06/13/2024 Medications acetaminophen (TYLENOL 8 HOUR) 650 mg 8 hr tablet Take 1 tablet (650 mg total) by mouth every 8 (eight) hours if needed for mild pain. Do not crush, chew, or split. Active atenoloL (TENORMIN) 100 mg tablet Take 1 tablet (100 mg total) by mouth 1 (one) time each day. 4 Active Vitamin D3 25 mcg (1,000 unit) tablet Take 1 tablet (1,000 Units total) by mouth 1 (one) time each day. 4 Active amLODIPine (NORVASC) 5 mg tablet Take 1 tablet (5 mg total) by mouth 1 (one) time each day. 4 Active hydroCHLOROthiazi de (HYDRODIURIL) 25 mg tablet Take 1 tablet (25 mg total) by mouth 1 (one) time each day. 4 Active cyanocobalamin (VITAMIN B-12) 1,000 mcg tablet Take 1 tablet (1,000 mcg total) by mouth 1 (one) time each day. 4 Active magnesium glycinate (Mag Glycinate) 100 mg tablet Take by mouth. Activ e omega-3 (Fish OiL) 360-1,200 mg capsule Take 1 capsule (1,200 mg total) by mouth 1 (one) time each day. Active pravastatin (PRAVACHOL) 20 mg tablet Take 1 tablet (20 mg total) by mouth 1 (one) time each day. 4 Active clonazePAM (KlonoPIN) 0.5 mg tablet Take 1 tablet (0.5 mg total) by mouth 2 (two) times a day if needed. 4 Active ibuprofen/diphenh ydramine cit (IBUPROFEN PM ORAL) Take by mouth. Activ e betamethasone dipropionate (DIPROSONE) 0.05 % ointment Apply topically 1 (one) time each day. 4 Active Surgical History Surgery Date Site/Laterality Comments APPENDECTOMY TONSILLECTOMY TUBAL LIGATION KNEE SURGERY Bilateral Medical History Medical History Date Comments Hyperlipidemia Hypertension Anxiety Family History Medical History Relation Name Comments Colon cancer Son Relation Name Status Comments Son Social History Tobacco Use Types Packs/Day Years Used Date Smoking Tobacco: Never Smokeless Tobacco: Never Tobacco Cessation:Counseling Given: Not Answered Alcohol Use Standard Drinks/Week Comments Not Currently 0 (1 standard drink = 0.6 oz pur e alcohol) socially Interpersonal Safety Answer Date Record ed Physical Abuse 06/16/2024 Verbal Abuse 06/16/2024 Comments No Sex and Gender Information Value Date Recorded Sex Assigned at Not on file Legal Sex Female 3:18 PM EDT Gender Identity Not on file Sexual Orientation Not on file Obstetrics History Last Filed Vital Signs Vital Sign Reading Time Taken Comments Blood Pressure 145/67 06/16/2024 9:49 AM EST Pulse 95 06/16/2024 9:49 AM EST Temperature 36.4 C (97.5 F) 06/16/2024 9:29 AM EST Respiratory Rate 20 06/16/2024 9:49 AM EST Oxygen Saturation 97% 06/16/2024 9:49 AM EST Inhaled Oxygen Concentration - - Weight 90.7 kg (200 lb) 06/16/2024 8:29 AM EST Height 149.9 cm (4' 11 ) 06/16/2024 8:29 AM EST Body Mass Index 40.4 06/16/2024 8:29 AM EST Plan of Treatment Upcoming Encounters Date Type Department Care Team (Late st Contact Info) Description 04/19/2025 10:40 AM EST Consult Gastroenterology - [place] [address] [place] [address] Shruthi Dickerson, DANA [address] [place] [phone] Health Maintenance Due Date Last Done Comments Breast Cancer Screening 1950 Hepatitis B Vaccines (2 of 3 - 19+ 3-dose series) 03/15/2003 02/15/2003 Cholesterol Screening (Lipid Panel) 03/16/2024 Hepatitis C Screening 03/16/2024 Medicare Annual Wellness Visit 03/16/2024 Osteoporosis Screening (Bone Density Screening) 03/16/2024 Social Influencers of Health Screening 03/16/2024 Depression Screening 05/25/2024 Hypertension/CHF/CAD Annual BMP Blood Test 06/16/2024 COVID-19 Vaccine ( season) 2024 03/09/2024, 02/24/2023, 02/21/2022, Additional history exists Influenza Vaccine (#1) 2025 , 02/24/2023, 02/21/2022, Additional history exists Falls Risk Assessment 06/16/2025 06/16/2024 DTaP,Tdap,and Td Vaccines (3 - Td or Tdap) 01/29/2029 01/29/2019, 09/19/2011 Colorectal Cancer Screening: Colonoscopy 06/16/2034 06/16/2024 Zoster Vaccines Completed 05/16/2019, 01/23, 04/24/2012, Additional history exists RSV Immunization Adult Patients Completed 04/22/2023 Pneumococcal Vaccine: 50+ Years Completed 01/19/2024, 05/08/2017, 08/28/2015 HIB Vaccines Aged Out No longer eligi ble based on patient's age to complete this topic HPV Vaccines Aged Out No longer eligi ble based on patient's age to complete this topic Hepatitis A Vaccines Aged Out No long er eligible based on patient's age to complete this topic IPV Vaccines Aged Out No longer eligi ble based on patient's age to complete this topic MMR Vaccines Aged Out No longer eligi ble based on patient's age to complete this topic Meningococcal ACWY Vaccine Aged Out N o longer eligible based on patient's age to complete this topic Meningococcal B Vaccine Aged Out No l onger eligible based on patient's age to complete this topic RSV Immunization Patients Under 20 months Aged Out No longer eligible based on patient's age to complete this topic Varicella Vaccines Aged Out No longer eligible based on patient's age to complete this topic Medical Devices Implanted Type Area Cow Trimmer Device Identifier Shelf Expiration Date Model / Serial / Lot Joints Knee Joints Knee Bilateral : Knee Procedures Procedure Name Priority Date/Time Associated Diagnosis Comments COLONOSCOPY Routine 06/16/2024 9:28 AM EST Family history of colonic polyps Family history of colon cancer from Last 3 Months or Most Recently Relevant to Health Maintenance Results * COLONOSCOPY Anesthesia - MAC; [facility] ENDOSCOPY (06/16/2024 9:28 AM EST) Anatomical Region Laterality Modality Other 06/16/2024 9:03 AM EST Impressions 06/16/2024 9:29 AM EST - One 8 mm polyp in the proximal ascending colon, removed with a hot snare. Resected and retrieved. - One 7 mm polyp at 40 cm proximal to the anus, removed with a hot snare. Resected and retrieved. - One 5 mm polyp at 20 cm proximal to the anus, removed with a cold snare. Resected and retrieved. - Non-bleeding internal hemorrhoids. - The examination was otherwise normal on direct and retroflexion views. Recommendation: - Discharge patient to home. - Resume previous diet. - Patient medication history reviewed. Patient is appropriately not taking any medications. - Await pathology results. - Repeat colonoscopy for surveillance based on pathology results. - Return to GI office PRN. Narrative 06/16/2024 9:[address] [facility] Patient Name: Zakia Arevalo Procedure Date: 06/16/2024 9:03 AM Date of : 1950 Age: 73 Room: ROOM 14 Gender: Female Note Status: Finalized Attending MD: Glenn Villatoro MD, Procedure Date No Time: 06/16/2024 Procedure: Colonoscopy Indications: Positive Cologuard test Providers: Glenn Villatoro MD Referring MD: Glenn Villatoro MD Medicines: Monitored Anesthesia Care Complications: No immediate complications. Estimated Blood Loss: Estimated blood loss: none. Procedure: Pre-Anesthesia Assessment: - ASA Grade Assessment: III - A patient with severe systemic disease. - After reviewing the risks and benefits, the patient was deemed in satisfactory condition to undergo the procedure. After I obtained informed consent, the scope was passed under direct vision. Throughout the procedure, the patient's blood pressure, pulse, and oxygen saturations were monitored continuously.The Olympus Colonoscope was introduced through the anus and advanced to the cecum, identified by appendiceal orifice and ileocecal valve. The colonoscopy was performed without difficulty. The patient tolerated the procedure well. The quality of the bowel preparation was good. Findings: An 8 mm polyp was found in the proximal ascending colon. The polyp was sessile. The polyp was removed with a hot snare. Resection and retrieval were complete. Estimated blood loss was minimal. A 7 mm polyp was found at 40 cm proximal to the anus. The polyp was sessile. The polyp was removed with a hot snare. Resection and retrieval were complete. Estimated blood loss was minimal. A 5 mm polyp was found at 20 cm proximal to the anus. The polyp was sessile. The polyp was removed with a cold snare. Resection and retrieval were complete. Estimated blood loss was minimal. Non-bleeding internal hemorrhoids were found during retroflexion. The exam was otherwise without abnormality on direct and retroflexion views. Procedure Code(s): --- Professional --- 20911, Colonoscopy, flexible; with removal of tumor(s), polyp(s), or other lesion(s) by snare technique Diagnosis Code(s): --- Professional --- D12.2, Benign neoplasm of ascending colon R19.5, Other fecal abnormalities CPT copyright 2020 [employer]. All rights reserved. The codes documented in this report are preliminary and upon reexaminer review may be revised to meet current compliance requirements. Glenn Villatoro MD 06/16/2024 9:29:25 AM This report has been signed electronically.Glenn Villatoro MD Number of Addenda: 0 Note Initiated On: 06/16/2024 9:03 AM Scope In: Scope Out: Endoscopy Department at [facility] - [address] [place] [phone] Procedure Note Glenn Villatoro MD - 06/16/2024 [facility] Patient Name: Zakia Arevalo Procedure Date: 06/16/2024 9:03 AM Date of : 1950 Age: 73 Room: ROOM 14 Gender: Female Note Status: Finalized Attending MD: Glenn Villatoro MD, Procedure Date No Time: 06/16/2024 Procedure: Colonoscopy Indications: Positive Cologuard test Providers: Glenn Villatoro MD Referring MD: Glenn Villatoro MD Medicines: Monitored Anesthesia Care Complications: No immediate complications. Estimated Blood Loss: Estimated blood loss: none. Procedure: Pre-Anesthesia Assessment: - ASA Grade Assessment: III - A patient with severe systemic disease. - After reviewing the risks and benefits, thepatient was deemed in satisfactory condition to undergo the procedure. After I obtained informed consent, the scope was passed under direct vision. Throughout theprocedure, the patient's blood pressure, pulse, and oxygen saturations were monitored continuously.The Olympus Colonoscope was introduced through the anus and advanced to the cecum, identified by appendiceal orifice and ileocecal valve. The colonoscopy was performed without difficulty. The patient tolerated the procedure well. The quality of the bowel preparation was good. Findings: An 8 mm polyp was found in the proximal ascending colon. The polyp was sessile. The polyp was removed with a hot snare. Resection and retrieval were complete. Estimated blood loss was minimal. A 7 mm polyp was found at 40 cm proximal to theanus. The polyp was sessile. The polyp was removed with a hot snare. Resection and retrieval were complete. Estimated blood loss was minimal. A 5 mm polyp was found at 20 cm proximal to theanus. The polyp was sessile. The polyp was removed with a cold snare. Resection and retrieval were complete. Estimated blood loss was minimal. Non-bleeding internal hemorrhoids were found during retroflexion. The exam was otherwise without abnormality ondirect and retroflexion views. Procedure Code(s): --- Professional --- 81467, Colonoscopy, flexible; with removal of tumor(s), polyp(s), or other lesion(s) by snare technique Diagnosis Code(s): --- Professional --- D12.2, Benign neoplasm of ascending colon R19.5, Other fecal abnormalities CPT copyright 2020 [employer]. All rights reserved. The codes documented in this report are preliminary and upon reexaminer reviewmay be revised to meet current compliance requirements. Glenn Villatoro MD 06/16/2024 9:29:25 AM This report has been signed electronically.Glenn Villatoro MD Number of Addenda: 0 Note Initiated On: 06/16/2024 9:03 AM Scope In: Scope Out: Endoscopy Department at [facility] - [address] [place] [phone] IMPRESSION: - One 8 mm polyp in the proximal ascending colon, removed with a hot snare. Resected and retrieved. - One 7 mm polyp at 40 cm proximal to the anus, removed with a hot snare. Resected and retrieved. - One 5 mm polyp at 20 cm proximal to the anus, removed with a cold snare. Resected andretrieved. - Non-bleeding internal hemorrhoids. - The examination was otherwise normal on directand retroflexion views. Recommendation: - Discharge patient to home. - Resume previous diet. - Patient medication history reviewed. Patient is appropriately not taking any medications. - Await pathology results. - Repeat colonoscopy for surveillance based on pathology results. - Return to GI office PRN. Glenn Villatoro MD GI~PROCEDURE ORDERABLES Final Result from Last 3 Months or Most Recently Relevant to Health Maintenance Insurance MEDICARE [facility] Care Teams Bi Report Developer Relationship Specialty Start Date End Date Susan Hanson MD [address] [place] [address] PCP - General Pediatrics 03/15/24
--- OUTSIDE RECORDS SUMMARY | 2025-01-23 09:20 | XMS_ITS | Encounter Summary ---
Author Organization [facility] Address [address] [place] [address] [place] [address] Phone Care Team Providers Care Radio Intelligence Operator Name Role Phone Susan Hanson MD Primary Care Provider [phone] Encounter Details Date Type Department Care Team (Late st Contact Info) Description 02/11/2023 Ancillary Orders [facility] Orthopedics & Sports Medicine [address] [place] [address] Ko Silva PA-C [address] [place] [address] Orthopedics & Sports Medicine, [facility] [place] [address] [email or web address] Social History Tobacco Use Types Packs/Day Years [...] Description 02/08/2025 1:30 PM EDT [facility] [address] [place] [address] Jessica Lewis MD [address] [place] [address] Orthopedics & Sports Medicine, [facility] [place] [address] [email or web address] documented as of this encounter Visit Diagnoses Not on filedocumented in this encounter Care Teams Radio Intelligence Operator Relationship Specialty Start Date End Date Susan Hanson MD [address] [place] [address] PCP - General Internal Medicine 02/06/23 documented as of this encounter Additional Source Comments The information contained in this document represents components of the legal health record. It is not the complete legal health record.[facility]
--- OUTSIDE RECORDS SUMMARY | 2025-01-23 09:20 | XMS_ITS | Clinical Summary ---
Author Organization [facility] Address [address] [place] [phone] Phone Care Team Providers Care Criminal Records Technician Name Role Phone Susan Hanson MD Primary Care Provider Allergies Active Allergy Reactions Criticality Noted Date Comments Carbamazepine 03/03/2023 Other reaction(s): chemical induce hepatitis, chemically induced hepatitis Codeine Hallucinations High 03/03/2023 Lisinopril Angioedema,Rash Low 03/03/2023 Meloxicam 03/03/2023 Other reaction(s): Pruritic Rash Other 06/13/2024 Horse serum Oxycodone Nausea and/or Vomiting High 09/28/2023 Penicillin Rash Low 03/03/2023 Sulfa (Sulfonamide Antibiotics) Rash Low 09/15/2023 Sulfamethoxazole-Trime thoprim 03/03/2023 Medications amLODIPine (NORVASC) 5 MG tablet Take 5 mg by mouth daily. Active atenolol (TENORMIN) 100 MG tablet Take 100 mg by mouth daily. Active CHOLECALCIFEROL 25 mcg (1,000 unit) tablet Take 1 tablet by mouth every morning. 4 Active clonazePAM (KLONOPIN) 0.5 MG tablet Take 0.5 mg by mouth. 3 Active VITAMIN B-12 1000 MCG tablet Take 1 tablet by mouth every morning. 4 Active omega 6-aum-meq-fish oil (FISH OIL) 1,000 mg (120 mg-180 mg) Cap 1 capsule. Acti ve magnesium glycinate 100 mg Tab Take by mouth. Active omega-3 fatty acids-fish oil 360-1,200 mg Cap Take 1,200 mg by mouth. Active betamethasone dipropionate 0.05 % ointment Apply topically. 4 Active diclofenac potassium (CATAFLAM) 50 MG tablet Take 50 mg by mouth 3 (three) times a day. Active hydroCHLOROthiaz steve (HYDRODIURIL) 25 MG tablet Take 25 mg by mouth daily. 01/11/20 Discontinu ed(No longer taking) pravastatin (PRAVACHOL) 20 MG tablet Take 20 mg by mouth daily. 01/11/20 Discontinu ed(No longer taking) HYDROmorphone (DILAUDID) 2 MG tablet Take 1 tablet (2 mg total) by mouth every 6 (six) hours as needed for pain (specific location in comments). Partial fill ok 5 tablet 4 01/11/20 Discontinu ed(No longer taking) traMADoL (ULTRAM) 50 mg tablet Take 1 tablet (50 mg total) by mouth every 8 (eight) hours as needed for pain (specific location in comments). 5 tablet 4 01/11/20 Discontinu ed(No longer taking) acetaminophen-DM 1,000-30 mg PwPk 01/11/20 Discontinu ed(No longer taking) FLUoxetine (PROZAC) 20 MG capsule Take 20 mg by mouth. 4 01/11/20 Discontinu ed(No longer taking) fluticasone propionate (FLONASE ALLERGY RELIEF) 50 mcg/actuation nasal spray by Nasal route. 3 01/11/20 Discontinu ed(No longer taking) cefpodoxime (VANTIN) 200 MG tablet Take 1 tablet (200 mg total) by mouth 2 (two) times a day for 10 days. 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 10/14/19 24 Encounters Date Type Department Care Team Description 01/10/2025 8:00 AM EDT Office Visit [facility] [address] [place] [id number] Neema Aldana PA-C Closed displaced fracture of middle phalanx of left little finger with routine healing, subsequent encounter (Primary Dx); Finger pain, left 01/10/2025 7:56 AM EDT - 01/10/2025 11:59 PM EDT Hospital Encounter [address] [address] Neema Aldana PA-C Discharge Disposition: Home or Self Care 12/31/2024 7:48 PM EDT - 01/01/2025 12:19 AM EDT Emergency [facility] [address] [place] [address] Jalil Lepe MD Discharge Disposition: Home or Self Care 11/12/2024 12:40 PM EDT - 11/12/2024 4:00 PM EDT Emergency [facility] [address] [place] [phone] Yifan Owens MD Discharge Disposition: Home or Self Care 11/12/2024 Procedure Pass [facility] [address] [place] [address] 11/09/2024 Ancillary Orders [address] [address] Jessica Lewis MD Osteoarthritis of left hip, unspecified osteoarthritis type (Primary Dx) from Last 3 Months Social History Tobacco Use Types Packs/Day Years Used Date Smoking Tobacco: Never Smokeless Tobacco: Never Tobacco Cessation:Counseling Given: Not Answered Alcohol Use Standard Drinks/Week Comments Yes 1 (1 standard drink = 0.6 oz pur e alcohol) evevry three months Education Answer Date Recorded Are you interested in more education? Not on marko e 09/19/2022 Are you concerned about learning? Not on file 09/19/2022 No 09/19/2022 No 09/19/2022 Food Answer Date Recorded Within the past 6 months we worried whether our food would run out before we got money to buy more. Never True 12/31/2024 Within the past 6 months the food we bought just didn't last and we didn't have enough money to get more. Never True Residential Stability Answer Date Recor ded What is your housing situation today? I have ketan kathleen 12/31/2024 How many times have you move d in the past 12 months? Zero (I did not move) 12/31/2024 Paying for Meds Answer Date Recorded Do you have trouble paying for medicines? No 12/31/2024 Paying Utility Bills Answer Date Record ed Do you have trouble paying your heating or elect ricity bill? No 12/31/2024 Transportation Answer Date Recorded Has the lack of transportati on kept you from medical appointments or from getting medications? No 12/31/2024 Digital Access Answer Date Recorded No 12/31/2024 Yes 12/31/2024 Do you have reliable internet access at home? Ye s 12/31/2024 Do you have a device (e.g., phone, tablet, computer) with a working camera? Yes 12/31/2024 Intimate Partner Violence Answer Date R ecorded Are you denied basic needs s uch as food, clothing, or medical care? No 12/31/2024 In the past 12 months have y ou been in a relationship with a person who hurts, threatens, or tries to control you? No 12/31/2024 Are you denied basic needs s uch as food, clothing, or medical care? No 12/31/2024 In the past 12 months have y ou been in a relationship with a person who hurts, threatens, or tries to control you? No 12/31/2024 Comments Unknown Sex and Gender Information Value Date Recorded Sex Assigned at Female 12/31/2024 2:07 PM EDT Legal Sex Female 11:24 AM EDT Gender Identity Female 12/31/2024 2:07 PM EDT Sexual Orientation Not on file Last Filed Vital Signs Vital Sign Reading Time Taken Comments Blood Pressure 143/73 01/01/2025 12:07 AM EDT Pulse 85 01/01/2025 12:07 AM EDT Temperature 37 C (98.6 F) 01/01/2025 12:07 AM EDT Respiratory Rate 16 01/01/2025 12:07 AM EDT Oxygen Saturation 96% 01/01/2025 12:07 AM EDT Inhaled Oxygen Concentration - - Weight 84.8 kg (187 lb) 12/31/2024 2:10 PM EDT Height 149.9 cm (4' 11 ) 12/31/2024 2:10 PM EDT Body Mass Index 37.77 12/31/2024 2:10 PM EDT Plan of Treatment Upcoming Encounters Date Type Department Care Team (Late st Contact Info) Description 02/08/2025 1:30 PM EDT Office Visit [facility] [address] [place] [address] Jessica Lewis MD [address] [place] [address] Orthopedics & Sports Medicine, [facility] [place] [address] [email or web address] Maintenance Due Date Last Done Comments LIPID PANEL 1950 DEPRESSION SCREENING 1962 HEPATITIS C SCREENING 1968 MAMMOGRAM 1990 COLOGUARD 1995 COLONOSCOPY 1995 COLORECTAL CANCER SCREENING 1995 FIT TEST 1995 FOBT 1995 SIGMOIDOSCOPY 1995 VIRTUAL COLONOSCOPY 1995 ZOSTER VACCINES (2 of 3) 05/06/2012 03/11/2012 OSTEOPOROSIS SCREENING INITIAL (ONE-TIME) 2015 COVID-19 VACCINE ( season) 2024 03/09/2024, 02/24/2023, 02/21/2022, Additional history exists INFLUENZA VACCINE (#1) 2024 , 02/24/2023, 02/21/2022, Additional history exists Adult Td,Tdap Booster 01/29/2029 01/29/2019 RSV VACCINE Completed 04/22/2023 PNEUMOCOCCAL VACCINES (50+ years) Completed 01/19/2024 SMOKING STATUS SCREENING (Once After 26 Yrs) Completed 12/31/2024 HEPATITIS A VACCINES Aged Out No long er eligible based on patient's age to complete this topic HIB VACCINES Aged Out No longer eligi ble based on patient's age to complete this topic MENINGOCOCCAL VACCINES (ACWY) Aged Out No longer eligible based on patient's age to complete this topic MENINGOCOCCAL VACCINES (B) Aged Out N o longer eligible based on patient's age to complete this topic Medical Devices Implanted Type Area Tailing Hand Device Identifier Shelf Expiration Date Model / Serial / Lot Prosthetic Joint-02/22/2014 Implanted:02/22 (Quantity not on file) Prosthetic Joint Procedures Procedure Name Priority Date/Time Associated Diagnosis Comments XR FINGER 2 OR MORE VIEWS (LEFT) Routine 01/10/2025 8:03 AM EDT Finger pain, left AMMONIA STAT 12/31/2024 9:53 PM EDT SEDIMENTATION RATE (ESR) STAT 12/31/2024 9:53 PM EDT C-REACTIVE PROTEIN, HIGH SENSITIVITY STAT 12/31/2024 9:53 PM EDT CPK (CREATINE KINASE) STAT 12/31/2024 9:53 PM EDT PHOSPHORUS STAT 12/31/2024 9:53 PM EDT MAGNESIUM STAT 12/31/2024 9:53 PM EDT LFTS (HEPATIC PANEL) STAT 12/31/2024 9:53 PM EDT BASIC METABOLIC PANEL STAT 12/31/2024 9:53 PM EDT CBC AND DIFFERENTIAL STAT 12/31/2024 9:53 PM EDT ECG 12-LEAD STAT 12/31/2024 9:39 PM EDT URINE SEDIMENT STAT 12/31/2024 9:34 PM EDT URINALYSIS W/REFLEX URINE CULTURE STAT 12/31/2024 9:34 PM EDT URINE CULTURE Routine 12/31/2024 9:34 PM EDT ORTHOPEDIC INJURY TREATMENT Routine 11/12/2024 4:02 PM EDT LACERATION REPAIR Routine 11/12/2024 4:0 0 PM EDT XR FINGER 2 OR MORE VIEWS (LEFT) Routine 11/12/2024 1:23 PM EDT XR FINGER 2 OR MORE VIEWS (RIGHT) Routine 11/12/2024 1:[address] HEAD WITHOUT CONTRAST Routine 11/12/2024 12:46 PM EDT from Last 3 Months Results * XR FINGER 2 OR MORE VIEWS (LEFT) (01/10/2025 8:03 AM EDT) Narrative SYSTEMGENERATED, DOCUMENTATION - 01/10/2025 8:03 AM EDT This image report has been auto-finalized and has not been read by a Radiologist. Interpretation has been included in the provider encounter note for this date of service. us Neema Aldana PA-C IMG XR UPPER EXTREMI TY Final Result * (ABNORMAL) C-reactive protein, high sensitivity (12/31/2024 9:53 PM EDT) CRP, HIGH SENSITIVITY 83.7(H) 0.0 - 5.0 mg/L [facility] Comment: Interpretation: hsCRP level (mg/L) Relative Risk <1.0 Low 1.0 - 3.0 Average >3.0 High Neonates (0-3 weeks): 0.1 - 4.1 mg/L Children (2 months - 15 years): 0.1 - 2.8 mg/L Blood 12/31/2024 9:53 PM EDT 12/31/2024 9:59 PM EDT us Jalil Lepe MD LAB BLOOD ORDERABLES Final Resu lt [facility] [address] [place] [address] * (ABNORMAL) LFTs (hepatic panel) (12/31/2024 9:53 PM EDT) ALKALINE PHOSPHATASE 203(H) 39 - 117 U/L [facility] TOTAL BILIRUBIN 1.5(H) 0.0 - 1.2 mg/dL [facility] DIRECT BILIRUBIN 0.6(H) 0.0 - 0.2 mg/dL [facility] Bilirubin (Indirect) 0.9 0 - 1.5 mg/dL [facility] AST 82(H) 0 - 37 U/L [facility] ALT 40 0 - 40 U/L [facility] TOTAL PROTEIN 6.7 6.5 - 8.0 g/dL [facility] ALBUMIN 3.3(L) 3.9 - 4.8 g/dL [facility] GLOBULIN 3.4 1 - 4.8 g/dL [facility] A/G Ratio 0.97(L) 1.00 - 4.80 RATIO [facility] Blood 12/31/2024 9:53 PM EDT 12/31/2024 9:59 PM EDT Jalil Lepe MD LAB BLOOD ORDERABLES Final Resu lt [address] [address] * (ABNORMAL) Sedimentation rate (ESR) (12/31/2024 9:53 PM EDT) [facility] ESR 72(H) 0 - 30 mm/h [facility] Blood 12/31/2024 9:53 PM EDT 12/31/2024 9:59 PM EDT Jalil Lepe MD LAB BLOOD ORDERABLES Final Resu lt [address] [address] * (ABNORMAL) CBC and differential (12/31/2024 9:53 PM EDT) Pathologist [facility] WBC 9.71 4.00 - 11.00 K/uL [facility] RBC 3.67(L) 4.00 - 5.20 M/uL [facility] HGB 13.6 12.0 - 16.0 g/dL [facility] HCT 39.7 36.0 - 46.0 % [facility] PLT 166 150 - 450 K/uL [facility] MCV 108.2(H) 80.0 - 100.0 fL [facility] MCH 37.1(H) 27.0 - 31.0 pg [facility] MCHC 34.3 32.0 - 36.0 g/dL [facility] RDW 13.2 11.5 - 14.5 % [facility] MPV 9.5 8.4 - 12.0 fL [facility] NRBC 0.00 0.00 /100 WBCs [facility] ABSOLUTE NRBC 0.00 0.00 K/uL [facility] DIFF METHOD Auto [facility] NEUTS 50.6 48.0 - 76.0 % [facility] LYMPHS 31.7 18.0 - 41.0 % [facility] MONOS 16.9(H) 4.0 - 11.0 % [facility] EOS 0.3 0.0 - 5.0 % [facility] BASOS 0.3 0.0 - 1.5 % [facility] Granulocytes, immature (%) 0.2 0.0 - 0.9 % [facility] ABSOLUTE NEUTS 4.91 1.92 - 7.60 K/uL [facility] ABSOLUTE LYMPHS 3.08 0.72 - 4.10 K/uL [facility] ABSOLUTE MONOS 1.64(H) 0.16 - 1.10 K/uL [facility] ABSOLUTE EOS 0.03 0.00 - 0.50 K/uL [facility] ABSOLUTE BASOS 0.03 0.00 - 0.15 K/uL [facility] Granulocytes, immature 0.02 0.00 - 0.09 K/uL [facility] Blood 12/31/2024 9:53 PM EDT 12/31/2024 9:59 PM EDT us Jalil Lepe MD LAB BLOOD ORDERABLES Final Resu lt [facility] [address] [place] [address] * (ABNORMAL) Phosphorus (12/31/2024 9:53 PM EDT) PHOSPHORUS 2.2(L) 2.7 - 4.5 mg/dL [facility] Blood 12/31/2024 9:53 PM EDT 12/31/2024 9:59 PM EDT us Jalil Lepe MD LAB BLOOD ORDERABLES Final Resu lt [address] [address] * Magnesium (12/31/2024 9:53 PM EDT) MAGNESIUM 2.0 1.6 - 2.6 mg/dL [facility] Blood 12/31/2024 9:53 PM EDT 12/31/2024 9:59 PM EDT us Jalil Lepe MD LAB BLOOD ORDERABLES Final Resu lt [address] [address] * CPK (creatine kinase) (12/31/2024 9:53 PM EDT) CREATINE KINASE 85 21 - 215 U/L [facility] Blood 12/31/2024 9:53 PM EDT 12/31/2024 9:59 PM EDT us Jalil Lepe MD LAB BLOOD ORDERABLES Final Resu lt Performing Organization Address City/[facility]/ZIP Co de Phone Number [address] [address] * Ammonia (12/31/2024 9:53 PM EDT) AMMONIA 20 20 - 65 umol/L [facility] Blood 12/31/2024 9:53 PM EDT 12/31/2024 9:59 PM EDT Jalil Lepe MD LAB BLOOD ORDERABLES Final Resu lt Performing Organization Address [facility] Co de Phone Number [address] [address] * (ABNORMAL) Basic metabolic panel (12/31/2024 9:53 PM EDT) Pathologist [facility] SODIUM 135 133 - 146 mmol/L [facility] CHLORIDE 92(L) 96 - 108 mmol/L [facility] POTASSIUM 2.9(L) 3.3 - 5.1 mmol/L [facility] CO2 31 21 - 35 mmol/L [facility] BUN 11 6 - 19 mg/dL [facility] CREATININE 0.60 0.5 - 1.5 mg/dL [facility] GLUCOSE 130(H) 70 - 99 mg/dL [facility] CALCIUM 9.0 8.4 - 10.3 mg/dL [facility] EGFR 94 >59 mL/min/1.7 3m2 [facility] Comment:Estimated glomerular filtration rate calculated using the CKD-EPI refit equation. ANION GAP 15 10 - 20 mmol/L [facility] Blood 12/31/2024 9:53 PM EDT 12/31/2024 9:59 PM EDT Jalil Lepe MD LAB BLOOD ORDERABLES Final Resu lt Performing Organization Address [facility] Co de Phone Number [address] [address] * ECG 12-LEAD (12/31/2024 9:39 PM EDT) Ventricular Rate EKG/MIN 77 BPM [facility] Atrial Rate 77 BPM [facility] ND Interval 154 ms [facility] QRS Duration 144 ms [facility] QT Interval 448 ms [facility] QTC Interval 506 ms [facility] P Liberty 21 degrees [facility] R Wave [place] -38 degrees [facility] T Wave [place] -4 degrees [facility] 12/31/2024 9:39 PM EDT 01/01/2025 8:23 PM EDT Narrative [facility] - 01/01/2025 8:23 PM EDT Normal sinus rhythm Left axis deviation Right bundle branch block Abnormal ECG When compared with ECG of 11-Mar-2013 13:49, Right bundle branch block is now Present Confirmed by Ko BRITO ([id number]) on 01/01/2025 8:23:55 PM us Jalil Lepe MD ECG ORDERABLES Final Result Performing Organization Address [facility] Co de Phone Number [email or web address] * (ABNORMAL) Urinalysis w/reflex Urine Culture (12/31/2024 9:34 PM EDT) COLOR Yellow Yellow [facility] CLARITY Clear [facility] GLUCOSE Negative Negative [facility] BILI 2+(A) Negative [facility] KETONES Negative Negative [facility] SPECIFIC GRAVITY 1.015 1.005 - 1.030 [facility] BLOOD 3+(A) Negative [facility] PH 6.0 5.0 - 8.0 [facility] Protein-UA Trace(A) Negative [facility] NITRITE Positive(A) Negative [facility] Leukocyte esterase, ur 1+(A) Negative [facility] Urine (Urine) 12/31/2024 9:3 4 PM EDT 12/31/2024 9:39 PM EDT Elías Hinkle MD URINE ORDERABLES Final Resu lt Performing Organization Address [facility] Co de Phone Number [facility] [address] [place] [address] * (ABNORMAL) Urine Culture (12/31/2024 9:34 PM EDT) Special Requests None Reflexed from [id number] 12/31/2024 9:54 PM EDT [facility] Urine Culture 10,000 to 100,000 colony forming units per mL GAMMA NON HEMOLYTIC STREP NOT Group D (viridans)(A) 01/02/2025 9:45 AM EDT [facility] Urine 12/31/2024 9:34 PM EDT 12/31/2024 9:39 PM EDT Elías Hinkle MD MICROBIOLOGY - GENERAL ORDE [facility] Final Result Performing Organization Address [facility] Co de Phone Number [address] [address] * (ABNORMAL) Urine sediment (12/31/2024 9:34 PM EDT) WBC 50-100(A) NONE SEEN /hpf [facility] RBC 11-20(A) NONE SEEN /hpf [facility] URINE EPITHELIAL 5-10(A) NONE SEEN [facility] MUCUS Trace(A) NONE SEEN /hpf [facility] BACTERIA 1+(A) NONE SEEN /hpf [facility] 12/31/2024 9:34 PM EDT 12/31/2024 9:39 PM EDT us Elías Hinkle MD URINE ORDERABLES Final Resu lt Performing Organization Address [facility] Co de Phone Number [address] [address] * ORTHOPEDIC INJURY TREATMENT (11/12/2024 4:02 PM EDT) Narrative Yifan Owens MD - 11/12/2024 4:02 PM EDT Yifan Owens MD 11/12/2024 4:02 PM Orthopedic Injury Treatment/Splint/Cast Application Date/Time: 11/12/2024 4:02 PM Performed by: Yifan Owens MD Authorized by: Yifan Owens MD Injury Injury location: Finger Location details: Left little finger Injury type: Fracture Fracture type: middle phalanx MCP joint involved?: No Any IP joint involved?: No Pre-procedure assessment Neurovascular status: Neurovascularly intact Distal perfusion: normal Neurological function: normal Range of motion: reduced Local anesthesia used?: No Procedure details Manipulation performed?: No Immobilization: Splint Post-procedure assessment Neurovascular status: Neurovascularly intact Distal perfusion: normal Neurological function: normal Range of motion: normal Patient tolerance: Patient tolerated the procedure well with no immediate complications us Yifan Owens MD PROCEDURE/MINOR S URGICAL ORDERABLES Final Result * LACERATION REPAIR (11/12/2024 4:00 PM EDT) Narrative Yifan Owens MD - 11/12/2024 4:00 PM EDT Yifan Owens MD 11/12/2024 4:00 PM Laceration/Wound Repair Date/Time: 11/12/2024 4:00 PM Performed by: Yifan Owens MD Authorized by: Yifan Owens MD Injury: Body area: Head/neck Location details: Forehead Laceration length (cm): 2 Foreign bodies: No foreign bodies Tendon involvement: None Nerve involvement: None Vascular damage?: No Patient sedated?: No Anesthesia: No Procedure Details: Irrigation solution: Tap water Amount of cleaning: Standard Debridement: None Undermining: None Skin closure: Steri-Strips Approximation: Close Patient tolerance: Patient tolerated the procedure well with no immediate complications us Yifan Owens MD PROCEDURE/MINOR S URGICAL ORDERABLES Final Result * XR FINGER 2 OR MORE VIEWS (LEFT) (11/12/2024 1:23 PM EDT) Anatomical Region Laterality Modality Hand Left Computed Radiogr aphy 11/12/2024 2:42 PM EDT Impressions 11/12/2024 2:55 PM EDT 1. Acute nondisplaced fracture of the 5th middle phalanx with dorsal angulation. 2. No acute fracture or dislocation of the right hand or thumb, within limits of severe degenerative 1st CMC and STT joint changes. 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 No fracture. Normal alignment. Normal joint spaces. No soft tissue swelling. Left hand: Acute nondisplaced fracture of the 5th middle phalanx with dorsal angulation. Old left distal radius fracture. Severe degenerative changes of the 1st CMC and STT joints. Procedure Note Ramesh Mcnally MD - 11/12/2024 XR FINGER 2 OR MORE VIEWS (RIGHT), XR FINGER 2 OR MORE VIEWS (LEFT) Referring clinician's provided indication for this examination in Epic:Trauma COMPARISON: XR HAND 3 OR MORE VIEWS (RIGHT) ; XR WRIST 3 ORMORE VIEWS (LEFT) (accession [id number]), XR HAND 3 OR MOREVIEWS (RIGHT) (accession [id number]) FINDINGS: Right hand/thumb: Severe degenerative changes of the 1st CMC and STTjoints. No fracture. Normal alignment. Normal joint spaces. No soft tissueswelling. Left hand: Acute nondisplaced fracture of the 5th middle phalanx withdorsal angulation. Old left distal radius fracture. Severe degenerativechanges of the 1st CMC and STT joints. IMPRESSION: 1. Acute nondisplaced fracture of the 5th middle phalanx with dorsalangulation. 2. No acute fracture or dislocation of the right hand or thumb, withinlimits of severe degenerative 1st CMC and STT joint changes. Yifan Owens MD IMG XR UPPER EXTR EMITY Final Result * XR FINGER 2 OR MORE VIEWS (RIGHT) (11/12/2024 1:23 PM EDT) Anatomical Region Laterality Modality Hand Right Computed Radiogr aphy 11/12/2024 2:42 PM EDT Impressions 11/12/2024 2:55 PM EDT 1. Acute nondisplaced fracture of the 5th middle phalanx with dorsal angulation. 2. No acute fracture or dislocation of the right hand or thumb, within limits of severe degenerative 1st CMC and STT joint changes. Narrative 11/12/2024 2:55 PM EDT XR FINGER 2 OR MORE VIEWS (RIGHT), XR FINGER 2 OR MORE VIEWS (LEFT) Referring clinician's provided indication for this examination in [facility]: Trauma COMPARISON: XR HAND 3 OR MORE VIEWS (RIGHT) ; XR WRIST 3 OR MORE VIEWS (LEFT) (accession [id number]), XR HAND 3 OR MORE VIEWS (RIGHT) (accession [id number]) FINDINGS: Right hand/thumb: Severe degenerative changes of the 1st CMC and STT joints. No fracture. Normal alignment. Normal joint spaces. No soft tissue swelling. Left hand: Acute nondisplaced fracture of the 5th middle phalanx with dorsal angulation. Old left distal radius fracture. Severe degenerative changes of the 1st CMC and STT joints. Procedure Note Ramesh Mcnally MD - 11/12/2024 XR FINGER 2 OR MORE VIEWS (RIGHT), XR FINGER 2 OR MORE VIEWS (LEFT) Referring clinician's provided indication for this examination in [facility]:Trauma COMPARISON: XR HAND 3 OR MORE VIEWS (RIGHT) ; XR WRIST 3 ORMORE VIEWS (LEFT) (accession [id number]), XR HAND 3 OR MOREVIEWS (RIGHT) (accession [id number]) FINDINGS: Right hand/thumb: Severe degenerative changes of the 1st CMC and STTjoints. No fracture. Normal alignment. Normal joint spaces. No soft tissueswelling. Left hand: Acute nondisplaced fracture of the 5th middle phalanx withdorsal angulation. Old left distal radius fracture. Severe degenerativechanges of the 1st CMC and STT joints. IMPRESSION: 1. Acute nondisplaced fracture of the 5th middle phalanx with dorsalangulation. 2. No acute fracture or dislocation of the right hand or thumb, withinlimits of severe degenerative 1st CMC and STT joint changes. Yifan Owens MD IMG XR UPPER EXTR EMITY Final Result * CT HEAD WITHOUT CONTRAST (11/12/2024 12:46 PM EDT) Anatomical Region Laterality Modality Head Computed Tomogra phy 11/12/2024 2:12 PM EDT Impressions 11/12/2024 2:23 PM EDT No acute intracranial findings. ATTESTATION: I, Gely Ramirez as teaching physician, have reviewed the images for this case and if necessary edited the report originally created by Rosa Gramajo. Narrative 11/12/2024 2:[address] HEAD WITHOUT CONTRAST Referring clinician's provided indication for this examination in [facility]: * Head trauma, minor (Age >= 65y) TECHNIQUE: CT of the head was performed without intravenous contrast using tailored dose modulation techniques. Images were reconstructed in the axial, coronal, and sagittal planes. COMPARISON: None FINDINGS: Brain Parenchyma: No midline shift, mass effect, parenchymal hemorrhage, or evidence of acute territorial infarct. Hypodensities in the periventricular white matter, likely a manifestation of chronic small vessel disease. Ventricular System and Extra-Axial Spaces: The ventricles and sulci are prominent. No extra-axial fluid collections. Basilar cisterns are patent. No hydrocephalus. Osseous and Extracranial Structures: No calvarial fracture or significant soft tissue hematoma. No significant paranasal sinus disease. No orbital abnormality. Procedure Note Gely Ramirez MD - 11/12/2024 CT HEAD WITHOUT CONTRAST Referring clinician's provided indication for this examination in [facility]: *Head trauma, minor (Age >= 65y) TECHNIQUE: CT of the head was performed without intravenous contrast usingtailored dose modulation techniques. Images were reconstructed in theaxial, coronal, and sagittal planes. COMPARISON: None FINDINGS: Brain Parenchyma: No midline shift, mass effect, parenchymal hemorrhage,or evidence of acute territorial infarct. Hypodensities in theperiventricular white matter, likely a manifestation of chronic smallvessel disease. Ventricular System and Extra-Axial Spaces: The ventricles and sulci areprominent. No extra-axial fluid collections. Basilar cisterns are patent.No hydrocephalus. Osseous and Extracranial Structures: No calvarial fracture or significantsoft tissue hematoma. No significant paranasal sinus disease. No orbitalabnormality. IMPRESSION: No acute intracranial findings. ATTESTATION: I, Gely Ramirez as teaching physician, have reviewed theimages for this case and if necessary edited the report originally createdby Rosa Gramajo. Yifan Owens MD IMG CT HEAD/NECK Final Result from Last 3 Months Insurance MEDICARE PART A & B [facility] [place] [address] MEDICARE PART A & B MEDICARE PART A & B [facility] MEDICARE PART A & B VA MEDICARE PART A & B MEDICARE PART A & B [facility] [place] [address] Care Teams Criminal Records Technician Relationship Specialty Start Date End Date Susan Hanson MD [address] [place] [id number] PCP - General Internal Medicine 02/06/23 Additional Source Comments The information contained in this document represents components of the legal health record. It is not the complete legal health record.[facility]
--- OUTSIDE RECORDS SUMMARY | 2025-01-23 09:20 | XMS_ITS | Encounter Summary ---
Author Organization [facility] Address [address] [place] [address] [place] [phone] Phone Care Team Providers Care Martial Arts Instructor Name Role Phone Susan Hanson MD Primary Care Provider [phone] Encounter Details Date Type Department Care Team (Latest Contact Info) Description 02/11/2023 Ancillary Orders [facility] Orthopedics & Sports Medicine [address] [place] [address] Ko Silva PA-C [address] [place] [address] Orthopedics & Sports Medicine, [facility] [place] [address] [email or web address] Other closed intra-articular fracture of distal end of left radius, initial encounter Social History Tobacco Use Types Packs/Day Years [...] Description 02/08/2025 1:30 PM EDT Office Visit [facility] Orthopedics & Sports Medicine [address] [place] [id number] Jessica Lewis MD [address] [place] [address] Orthopedics & Sports Medicine, [facility] [place] [address] [email or web address] documented as of this encounter Results * XR WRIST 2 VIEWS (LEFT) (02/11/2023 1:06 PM EDT) Narrative SYSTEMGENERATED, DOCUMENTATION - 02/11/2023 1:06 PM EDT This image report has been auto-finalized and has not been read by a Radiologist. Interpretation has been included in the provider encounter note for this date of service. Ko Silva PA-C IMG XR UPPER EXTREMITY Final Result documented in this encounter Visit Diagnoses Diagnosis Other closed intra-articular fracture of distal end of left radius, initial encounter Other closed intra-articular fracture of distal end of left radius, initial encounter documented in this encounter Care Teams Martial Arts Instructor Relationship Specialty Start Date End Date Susan Hanson MD [address] [place] [id number] PCP - General Internal Medicine 02/06/23 documented as of this encounter Additional Source Comments The information contained in this document represents components of the legal health record. It is not the complete legal health record.[facility]
[2025-01-23 09:27] LABS: Hematocrit 41.2 % (37.0-47.0); Hemoglobin 14.4 g/dl (12.0-16.0); Imm Gran Abs Auto 0.02 X10*3/uL (0.00-0.03); Imm Gran Pct Auto 0.3 % (0.0-0.4); Lymphocytes Absolute Auto 2.6 X10*3/uL (1.2-4.9); MANUAL DIFF FLAG NO; Mean Corpuscular HGB Conc 35.0 g/dl (31.0-35.0); Mean Corpuscular Hemoglobin 37.8 pg (27.0-33.0); Mean Corpuscular Volume 108.1 fL (80.0-98.0); NRBC Abs Auto 0.000 X10*3/uL (0.0-0.012); NRBC Pct Auto 0.0 /100WBC (0.0-0.2); Platelet Count 129 X10*3/uL (160-400); Red Blood Count 3.81 X10*6/uL (4.20-5.50); White Blood Count 6.3 X10*3/uL (4.8-10.8)
[2025-01-23 09:43] LABS: Alanine Aminotransferase 47 U/L (0-31); Albumin Level 3.3 g/dL (3.5-5.0); Alkaline Phosphatase 200 U/L (39-117); Anion Gap 16 (12-20); Aspartate Amino Transferase 109 U/L (5-31); Blood Urea Nitrogen 7 mg/dL (9-16); Calcium 9.0 mg/dL (8.4-10.2); Carbon Dioxide 23 mmol/L (22-29); Chloride 105 mmol/L (96-108); Creatinine Clr Calc Pharmacy 87.0; Estimated Glomerular Filt Rate > 60; Potassium 3.4 mmol/L (3.3-5.1); Sodium 141 mmol/L (135-145); Total Protein 6.3 g/dL (6.5-8.0)
[2025-01-23 10:22] VITALS: BP 138/50; PULSE 84; RESP 18; O2SAT 96
[2025-01-23 10:37] LABS: Cannabinoid Screen Urine POSITIVE (Not Detect)
--- NOTE | 2025-01-23 12:47 | MHC.CM.PN ---
Addendum entered by Sada Tirado 01/23/25 15:42: PT UNDERSTANDS SHE WILL REMAIN OVERNIGHT SO THAT CM CAN CONFIRM SNF COVERAGE TOMORROW Original Note: CM MET WITH PT AND S/O, PT HAS NO SERVICES AT HOME AND IS INDEPENDENT WITH CARE AT SHE USES A CANE FOR DME - SAYS SHE HAS BEEN SUGGESTING A WALKER COPY OF HCP REQUESTED THEY ARE AWARE PT EVAL IS PENDING THEY REPORT THEY ARE HOPING PT CAN GO TO [facility] REFERRAL MADE TO DETERMINE IF SNF TAKES PTS INS SHE DOES NOT HAVE A QHS TO USE HER MCR
[2025-01-23 12:52] VITALS: BP 122/53; PULSE 76
[2025-01-23] MEDS: CEFPODOXIME 200 MG 200 EACH PO ×2 (16:30→20:43)
[2025-01-23 21:03] VITALS: BP 144/53; PULSE 79; RESP 18; TEMP 36.7; O2SAT 94
[2025-01-23 23:00] VITALS: BP 139/60; PULSE 80; RESP 18; TEMP 36.2; O2SAT 94
[2025-01-24 02:01] VITALS: RESP 20
[2025-01-24 05:05] VITALS: BP 140/30; PULSE 77; RESP 18; TEMP 36.8; O2SAT 98
--- NOTE | 2025-01-24 08:33 | PHA.MEDREC ---
Pharmacy Consult ? Medication Reconciliation Pharmacy has completed the medication reconciliation. Spoke with patient at bedside, she was a poor historian but had a written list in her wallet, compared that with pharmacy claims to confirm.
[2025-01-24 08:37] VITALS: BP 132/57; PULSE 81; RESP 16; TEMP 37.2; O2SAT 97
[2025-01-24] MEDS: CEFPODOXIME 200 MG 200 EACH PO (08:48)
--- NOTE | 2025-01-24 12:01 | MHC.CM.ED ---
Patient remains in ER overflow. Has not been inpatient in any facility in the past 30 days. Referral made to all 3 acute rehab facilities. No bed offers at this time. [facility] not able to offer a bed because they're not contracted with [facility]. Met with patient and , [place] in regards to discharge planning. Options of privately paying for STR vs home with [facility]. Patient and will discuss which they would prefer. At this time, both are agreeable to private pay referral being broadcasted in [facility] for bed offers and cost. Continue to monitor for d/c needs.
--- NOTE | 2025-01-24 13:59 | MHC.CM.ED ---
Addendum entered by Amarilys Simon 01/24/25 14:48: Patient and accepted bed at [facility]. Financials arranged by facility. [facility] booked for 4pm. Patient, [facility], [facility] and [facility]QUE[facility] aware. Original Note: List of facilities able to offer a private pay bed provided to Patient and , [facility]. [facility] will go over list and let CM know if they will privat pay for STR or patient will d/c home with [facility] and increased help from [facility]. Continue to monitor for d/c needs.
[2025-01-24 14:00] VITALS: BP 123/63; PULSE 84; RESP 16; TEMP 37.7; O2SAT 94
[2025-01-24 16:26] VITALS: BP 123/63; PULSE 84; RESP 16; TEMP 37.2; O2SAT 94
--- NOTE | 2025-01-24 16:27 | PC.NURSE ---
Nurse to Nurse report given to Chantal at [facility].
== END 2025-01-24 16:28 | disposition skilled nursing facility (03) ==
PROVIDERS: Registered Nurse Emergency; Emergency Provider Emergency Medicine; PCP Internal Medicine
DX: S42.202A Unspecified fracture of upper end of left humerus, initial encounter for closed fracture (principal); W06.XXXA Fall from bed, initial encounter; Y93.9 Activity, unspecified; Y92.9 Unspecified place or not applicable; Y99.9 Unspecified external cause status; M79.642 Pain in left hand; M25.512 Pain in left shoulder; I10 Essential (primary) hypertension; E78.5 Hyperlipidemia, unspecified; Z79.899 Other long term (current) drug therapy
CPT/HCPCS: 36415; 70450; 72125; 73030; 73060; 73100; 73130; 80053; 80307; 81001; 81003; 82550; 85025; 87086; 87088; 87186; 96372; 97162; 97530; 99285; J1885

== ENCOUNTER → 2025-01-23 08:44 | Outpatient (BNV) | payer MEDICARE, OTHER, SELFPAY | PROVIDERS: Emergency Provider Emergency Medicine; PCP Internal Medicine; Visit Provider Family Medicine | DX: M50.30 Other cervical disc degeneration, unspecified cervical region (principal); S09.90XA Unspecified injury of head, initial encounter; S42.292A Other displaced fracture of upper end of left humerus, initial encounter for closed fracture; S62.651 Nondisplaced fracture of middle phalanx of left index finger; M21.232 Flexion deformity, left wrist | CPT/HCPCS: 70450; 72125; 73030; 73060; 73110; 73130 ==